=== PATIENT | female | born 1965 | race Caucasian/White ===

== ENCOUNTER 2016-11-28 10:28 | Inpatient (IN) | payer OTHER ==
[~2016-11-28] VITALS: Ht 165.1 cm; Wt 108.0 kg
--- NOTE | 2016-11-28 10:35 | NUR ---
PT TO ED FOR MIGRAINE, REPORTING SHE HAS HAD A MIGRAINE SINCE TUESDAY, WAS SEEN AT [facility] TUESDAY AND TUESDAY NIGHT FOR SAME, STATING "THEY DID A CAT SCAN AND SAID MY BRAIN WAS SWOLLEN". REPORTING WORSENING NAUSEA AND VOMITING SINCE 6 AM THIS MORNING, VOMITING IN TRIAGE. DIFFICULT TO OBTAIN ACCURATE BP DUE TO PT'S WRETCHING AND DIFFICULTY STAYING STILL.
--- NOTE | 2016-11-28 11:04 | ED HEADACHE COMPLAINT ---
History of Present Illness General Chief Complaint: Headache Stated Complaint: MIGRANE Source: patient, family Exam Limitations: no limitations Vital Signs & Intake/Output Vital Signs & Intake/Output Vital Signs Date Time Temp Pulse Resp B/P Pulse O2 O2 Flow FiO2 Ox Delivery Rate 11/29 2159 98.0 89 20 130/90 94 Room Air 11/29 1623 102 162/80 11/29 1536 98.0 60 20 152/80 96 Room Air 11/29 0621 98.4 58 20 152/88 95 ED Intake and Output 11/30 0000 11/29 1200 Intake Total 940 100 Output Total 900 Balance 40 100 Intake, IV 100 100 Intake, Oral 840 Output, Urine 900 Allergies Coded Allergies: No Known Allergies (11/28/16) Reconcile Medications Butalbital/Aspirin/Caffeine (Vhkwwjombe-Rir-Olnorzim Cap) 50 MG-325 MG-40 MG CAPSULE 1-2 CAP PO Q4 HRS NEEDED PRN HEADCHE (Reported) MAX 6 CAPSULES PER DAY Prednisone 20 MG TABLET 3 TAB PO DAILY HEADACHE (Reported) X 3 DAYS Propranolol HCl 20 MG TABLET 1 TAB PO BID UNK (Reported) Terbinafine HCl 250 MG TABLET 1 TAB PO DAILY UNK (Reported) Tramadol HCl 50 MG TABLET 1 TAB PO Q4-6 PRN PRN PAIN (Reported) Triage Note: PT TO ED FOR MIGRAINE, REPORTING SHE HAS HAD A MIGRAINE SINCE TUESDAY, WAS SEEN AT [facility] TUESDAY AND TUESDAY NIGHT FOR SAME, STATING "THEY DID A CAT SCAN AND SAID MY BRAIN WAS SWOLLEN". REPORTING WORSENING NAUSEA AND VOMITING SINCE 6 AM THIS MORNING, VOMITING IN TRIAGE. Triage Nurses Notes Reviewed? yes HPI: 51-year-old female with history of migraines presents with severe headache that started 8 days ago. Sudden onset severe diffuse headache. She states it is worse than her usual migraine headaches and is more diffuse. She denies any visual changes. She is nauseous and vomiting intermittently throughout the week. She was seen at [facility] twice for this, last time on which she had a CT scan of her head and was told that her brain was "swollen" and they put her on prednisone, Fioricet and tramadol which is not relieving her symptoms. Last dose of prednisone was this morning, 20 mg. She denies any fever, she has no neck pain, no weakness or numbness in the extremities. She states that she has severe photophobia. She is not confused. She is not on any blood thinners. She states she has no history of hypertension, she is not on any blood thinners. There was no trauma. (SHANELL HENRY) Past History Travel History Traveled to [place] past 21 day No Medical History Any Pertinent Medical History? see below for history Neurological: migraine EENT: NONE Cardiovascular: NONE Respiratory: NONE Gastrointestinal: NONE Hepatic: NONE Renal: NONE Musculoskeletal: NONE Psychiatric: NONE Endocrine: NONE Blood Disorders: NONE Cancer(s): NONE Surgical History Surgical History: non-contributory Psychosocial History What is your primary language Turkmen Tobacco Use: Refused to answer ETOH Use: occasional use Illicit Drug Use: denies illicit drug use Family History Hx Contributory? No (SHANELL HENRY) Review of Systems Review of Systems Constitutional: Reports: see HPI. Eyes: Reports: no symptoms. Ears, Nose, Throat, Mouth: Reports: no symptoms. Respiratory: Reports: no symptoms. Cardiovascular: Reports: no symptoms. Gastrointestinal/Abdominal: Reports: no symptoms. Genitourinary: Reports: no symptoms. Musculoskeletal: Reports: no symptoms. Skin: Reports: no symptoms. Neurological/Psychological: Reports: see HPI. Hematologic/Endocrine: Reports: no symptoms. Endocrine: Reports: no symptoms. Immunologic/Allergic: Reports: no symptoms. All Other Systems: Reviewed and Negative (SHANELL HENRY) Physical Exam Physical Exam Cranial Nerves: normal hearing, normal speech, PERRL Comments: Well-developed well-nourished person . In moderate discomfort, shielding her eyes from the light, tearful. HEENT: Normal EENT exam, extraocular motion intact, no nystagmus. Pupils equally round and reactive to light. Nose is atraumatic. External auditory canal and Tympanic membranes clear. Pharynx normal. No swelling or edema. Neck: Supple, no lymphadenopathy, normal range of motion without pain or tenderness Back: Nontender, no CVA tenderness. Full range of motion Cardiovascular: Regular rate and rhythms no murmurs, normal JVP Respiratory: Chest nontender. No respiratory distress. Breath sounds clear to auscultation bilaterally Abdomen: Soft, nontender nondistended, no appreciable organomegaly. Normal bowel sounds. No ascites Extremity: No edema, no calf tenderness to palpation, normal and equal pulses. Neuro: Alert oriented x3, motor sensory normal, cranial nerves II through XII grossly intact. Skin: No appreciable rash on exposed skin, skin is warm and dry. Psych: Anxious, tearful, memory and judgment is normal. Core Measures Severe Sepsis Present: No Septic Shock Present: No (MALENA BEARD,SHANELL) Progress Differential Diagnosis: carotid dissection, cav sinus thromb, cluster VIRGEN, encephalitis, IC mass/tumor, intracranial Hem., meningitis, migraine VIRGEN, musculoskeletal pain, sinusitis, SSS thrombosis, subarach. Hem., tension VIRGEN, temporal arteritis, TMJ syndrome, viral cephalgia Plan of Care: Orders Procedure Date/time Status PARTIAL THROMBOPLASTIN TIME 11/30 06 Active PROTHROMBIN TIME 11/30 06 Active CBC WITHOUT DIFFERENTIAL 11/30 06 Active BASIC ELECTROLYTES PLUS BUN&CR 11/30 06 Active CULTURE,URINE 11/29 1040 Active URINE 11/29 0927 Complete URINALYSIS 11/29 09 Complete GLYCOSYLATED HGB 11/29 0640 Complete Lab Add-on Test 11/29 UNK Active MISSING MEDICATION FORM 11/29 UNK Active Current Medications Sig/Mila Start time Last Medication Dose Stop Time Status Admin Prednisone 10 MG DAILY 12/06 1000 AC 12/07 1001 Prednisone 20 MG DAILY 12/04 1000 AC 12/05 1001 Prednisone 30 MG DAILY 12/02 1000 AC 12/03 1001 Prednisone 40 MG DAILY 11/30 1000 AC 12/01 1001 Omeprazole 20 MG DAILY AC 11/30 0700 AC (Prilosec) Prednisone 50 MG DAILY 11/29 1013 CAN Enoxaparin Sodium 40 MG DAILY 11/29 1000 CAN (Lovenox) Laboratory Tests 11/29/16 1040: Urinalysis HEAVY H, Urine Color YEL, Urine Clarity HAZY H, Urine pH 8.0, Ur Specific [place] 1.010, Urine Protein NEG, Urine Ketones NEG, Urine Nitrite NEG, Urine Bilirubin NEG, Urine Urobilinogen 1.0, Ur Leukocyte Esterase NEG, Ur Microscopic SEDIMENT EXAMINED, Urine RBC 1-3, Urine WBC RARE, Ur Epithelial Cells FEW, Urine Bacteria RARE H, Urine Hemoglobin SMALL H, Urine Glucose NEG, Urine Test NEGATIVE 11/29/16 0640: Anion Gap 9, Estimated GFR 52 L, BUN/Creatinine Ratio 12.7, Hemoglobin A1c 5.7, CBC w Diff NO MAN DIFF REQ, RBC 5.14, MCV 84.9, MCH 27.9, RDW 13.9, MPV 8.2, Gran % 71.7, Lymphocytes % 21.2, Monocytes % 6.6, Eosinophils % 0.2, Basophils % 0.3, Absolute Granulocytes 9.1 H, Absolute Lymphocytes 2.7, Absolute Monocytes 0.8 H, Absolute Eosinophils 0, Absolute Basophils 0, PUBS MCHC 32.9 L Microbiology 11/29 1040 URINE ROUT: Urine Culture - RECD Diagnostic Imaging: Viewed by Me: CT Scan. Discussed w/RAD: CT Scan. Radiology Impression: PATIENT: YESENIA DIAZ PRESENT AGE: 51 PATIENT ACCOUNT NO: [id number] : 63 LOCATION: [facility] ORDERING PHYSICIAN: SHANELL BEARD SERVICE DATE: 11/28/16 EXAM TYPE : CAT - CT HEAD WO IV CONTRAST EXAMINATION: CT HEAD WITHOUT CONTRAST CLINICAL INFORMATION: Headache. Hypertension. Concern for subarachnoid hemorrhage. COMPARISON: None TECHNIQUE: Contiguous axial imaging was performed from the skull base to vertex without intravenous administration of contrast. Images are degraded by patient motion requiring some slices to be repeated. DLP: 672 mGy-cm FINDINGS: There is no evidence of acute intracranial hemorrhage or territorial infarction. No abnormal mass effect or midline shift is seen. Shah to white matter differentiation is well preserved. No extra-axial fluid collections are identified. The ventricles are normal in size. There is no abnormal attenuation within the brain parenchyma. The osseous structures and soft tissues are normal. The mastoid air cells and visualized portions of the paranasal sinuses are well aerated. IMPRESSION: No acute intracranial pathology. Specifically I do not appreciate any evidence for intracranial hemorrhage on these images. DICTATED BY : SHANELL BARONE MD DATE/TIME DICTATED:11/28/169 BIAS CUTTER: INDU Initial ED EKG: NSR, rate (50), no ST T wave changes Comments: Patient with severe headaches, sudden onset for 8 days of symptoms, intractable nausea and vomiting third visit to an emergency department. We'll check labs, repeat head CT, consider lumbar puncture. Evaluate for subarachnoid hemorrhage, pseudotumor cerebri as patient is obese and hypertensive Patient treated with IV Dilaudid, IV fluids, IV Phenergan 25 mg. She was reevaluated and still with pain level of 8 out of 10. Still nauseous. She is given Toradol IV and Zofran 4 mg IV. She is also given 10 mg hydralazine IV for persistent hypertension. Patient had lumbar puncture which was mildly traumatic, 3 times required to do excessive body habitus. Pain scale of 4 out of 10 after reevaluation. Discussed with Dr. Pavon, neurologist, recommends Diamox 500 mg daily and following up with neurology clinic at [place] as outpatient if the patient is to be discharged. Patient reevaluated multiple times, still with complaints of moderate headache, persistent nausea, vomited again and mild dyspepsia. She is given another dose of IV Zofran, 1 mg of IV Dilaudid, 40 mg of IV Protonix and Diamox 500 mg IV was ordered. She has intractable nausea vomiting and headache, she required admission to the hospital. (SHANELL HENRY) Departure Departure Disposition: STILL A PATIENT Condition: Stable Clinical Impression Primary Impression: Pseudotumor cerebri Secondary Impressions: Hypertensive urgency Intractable headache Qualifiers: Headache type: unspecified Headache chronicity pattern: acute headache Qualified Code: R51 - Headache Intractable nausea and vomiting Qualifiers: Vomiting type: unspecified Qualified Code: R11.2 - Nausea with vomiting, unspecified Referrals: PATIENT HAS NO PRIMARY CARE DR (PCP/Family) Departure Forms: Customer Survey General Discharge Information Admission Note Spoke With: EFRA ALEXIS MD Documentation of Exam: Documentation of any treatments & extenuating circumstances including Concerns Regarding Discharge (functional status, medication knowledge or non-compliance, living conditions, etc.) that warrant an admission rather than observation: 51-year-old female with new onset, new diagnosis pseudotumor cerebri with intractable headaches nausea vomiting and hypertension, failed treatment here in the ER to improve her symptoms and she will require admission to the hospital for continued IV fluids IV antiemetics and IV pain control and Diamox (SHANELL HENRY) PA/ORTHOPEDIC CAST SPECIALIST Co-Sign Statement Statement: ED Attending supervision documentation- [X] I saw and evaluated the patient. I have also reviewed all the pertinent lab results and diagnostic results. I agree with the findings and the plan of care as documented in the PA's/ORTHOPEDIC CAST SPECIALIST's documentation. [X] I have reviewed the ED Record and agree with the PA's/ORTHOPEDIC CAST SPECIALIST's documentation. [] Additions or exceptions (if any) to the PAs/ORTHOPEDIC CAST SPECIALIST's note and plan are summarized below: [] (ROQUE CASTELLANOS,RANDI Vaughan) Procedures Additional Procedures Additional Procedures: lumbar puncture Progress: After verbal consent wrist and benefits of procedure discussed lumbar puncture was performed by myself with Dr. Serrano. Sterile technique with Betadine, 5 mL of lidocaine was instilled into the L3 L4 . 3 attempts were made as this was a mildly difficult spinal tap due to patient's excessive body habitus. Third attempt was successful, opening pressure measured 36 mmHg, spinal fluid was removed as we suspected pseudotumor cerebri, clear spinal fluid was collected in 4 tubes and sent to the lab 2 mL in each tube, spinal fluid was then rechecked at 19 mmHg. The stylet was then reinserted into the spinal needle and the needle was withdrawn. Patient tolerated the procedure well without, patient's. A Band-Aid was placed. She is to lay flat for the next 1 hour. (SHANELL HENRY) Critical Care Note Critical Care Note Critical Care Time: 30-74 min (SHANELL HENRY)
[2016-11-28 11:23] LABS: ABSOLUTE BASOPHIL COUNT 0 /CUMM (0.0-0.2); ABSOLUTE EOSINOPHIL COUNT 0 /CUMM (0.0-0.7); ABSOLUTE GRANULOCYTE CT 10.5 /CUMM (1.4-6.5); ABSOLUTE LYMPH COUNT 1.6 /CUMM (1.2-3.4); BASOPHIL % 0.1 % (0.0-2.0); EOSINOPHIL % 0.1 % (0-5); GRANULOCYTE % 80.3 % (42.2-75.2); HEMATOCRIT 42.8 % (37-47); MEAN CORPUSCULAR HGB 28.3 PG (27.0-31.0); MEAN CORPUSCULAR HGB CONC 33.3 G/DL (33.0-37.0); MEAN CORPUSCULAR VOLUME 84.9 FL (81.0-99.0); MEAN PLATELET VOLUME 7.6 FL (7.4-10.4); PLATELET COUNT 270 /CUMM (130-400); RBC DISTRIBUTION WIDTH 13.9 % (11.5-14.5); RED BLOOD CELL CT 5.05 /CUMM (4.20-5.40); WHITE BLOOD CELL COUNT 13.1 /CUMM (4.8-10.8)
--- NOTE | 2016-11-28 11:28 | NUR ---
PT IN [facility] RM 8 C/C NOTED IN TRIAGE NOTE EVALUATED BY CHIRAG GUY IV ACCESS ESTABLISHED, #20 LAC LABS DRAWN/SENT (SST, LAVENDAR, BLUE AND SIMONS TOP TUBES) IVF N/S INFUSION INITIATED AND PT MEDICATED WITH DILAUDID, PHENERGAN AND TORADOL PER ORDERS.
--- NOTE | 2016-11-28 11:55 | NUR ---
CHIRAG GUY AT BEDSIDE
--- NOTE | 2016-11-28 12:46 | NUR ---
PT ACTIVELY VOMITING MEDICATED WITH ZOFRAN PER ORDERS
[2016-11-28] MEDS ORDERED: PREDNISONE20 M1 PO (12:55)
[2016-11-28] MEDS ORDERED: TRAMADOL HCL50 M1 PO (12:55)
[2016-11-28] MEDS ORDERED: BUTALBITAL-ASA1 EACH PO (12:56)
[2016-11-28] MEDS ORDERED: PROPRANOLOL HCL20 M1 PO (12:57)
[2016-11-28] MEDS ORDERED: TERBINAFINE HC250 MG PO (12:58)
--- NOTE | 2016-11-28 12:58 | NUR ---
PT TO CT SCAN VIA STRETCHER AT THIS TIME
--- NOTE | 2016-11-28 13:06 | NUR ---
PT RETURNS FROM CT SCAN
--- NOTE | 2016-11-28 13:34 | CT SCAN REPORT ---
EXAMINATION: CT HEAD WITHOUT CONTRAST CLINICAL INFORMATION: Headache. Hypertension. Concern for subarachnoid hemorrhage. COMPARISON: None TECHNIQUE: Contiguous axial imaging was performed from the skull base to vertex without intravenous administration of contrast. Images are degraded by patient motion requiring some slices to be repeated. DLP: 672 mGy-cm FINDINGS: There is no evidence of acute intracranial hemorrhage or territorial infarction. No abnormal mass effect or midline shift is seen. Shah to white matter differentiation is well preserved. No extra-axial fluid collections are identified. The ventricles are normal in size. There is no abnormal attenuation within the brain parenchyma. The osseous structures and soft tissues are normal. The mastoid air cells and visualized portions of the paranasal sinuses are well aerated. IMPRESSION: No acute intracranial pathology. Specifically I do not appreciate any evidence for intracranial hemorrhage on these images.
--- NOTE | 2016-11-28 14:29 | NUR ---
PT. AMBULATORY TO BATHROOM WITH ASSISTANCE
--- NOTE | 2016-11-28 14:39 | NUR ---
PT MEDICATED WITH APRESOLINE PER ORDERS 1% LIDOCAINE AT BEDSIDE PER REQUEST CHIRAG GUY
--- NOTE | 2016-11-28 15:26 | NUR ---
ASSUMING CARE OF PT
--- NOTE | 2016-11-28 16:38 | NUR ---
PT RESTING COMFORTABLY ON STRETCHER. LIGHTS DIMMED FOR COMFORT. AWAITING RESULTS
--- NOTE | 2016-11-28 18:26 | NUR ---
MEDICATED PT WITH ZOFRAN 4MG IV
--- NOTE | 2016-11-28 18:39 | NUR ---
PT MEDICATED WITH DILAUDID 1MG IV AND PROTONIX 40MG IV FOR PAIN AND NAUSEA.
--- NOTE | 2016-11-28 19:12 | NUR ---
PT MEDICATED WITH DIAMOX 500MG IV
--- NOTE | 2016-11-28 20:09 | NUR ---
PT HAS BED #216-2
--- NOTE | 2016-11-28 20:14 | NUR ---
REPORT GIVEN TO RADHA KOENIG
[2016-11-28 21:00] VITALS: BP 160/82
--- NOTE | 2016-11-28 23:07 | History & Physical ---
RITO CASTELLANOS,KARENShiloh 11/28/16 8092: General Information and [facility] MD Statement: I have seen and personally examined YESENIA DIAZ and documented this H&P. The patient is a 51 year old F who presented with a patient stated chief complaint of [HEADACHE]. Source of Information: patient, old records Exam Limitations: no limitations History of Present Illness: This is a 51-year-old female past medical history significant for migraines who comes in with a chief complaint of headache. Patient states that her headaches started about 8 days ago and she describes it as sudden onset, diffusely distributed, associated with photophobia and nausea. She States She Does Have a History of Migraines. Particularly in Her Youth She Suffered from severe headaches once a week that often required in-hospital management. However, with time, her episodes have decreased to 2-3 times a month. She states that current headache is different from her normal migraines. It is worse and unrelenting. At this time she denies any visual changes, weakness, trauma, weakness, fever, nuchal rigidity, rash, myalgia, arthralgia, loss of consciousness, confusion, or dizziness. Of note, patient went to [facility] twice since onset of her headaches. Supposedly, a CT of her head was done and showed "brain swelling." She was started on Fioricet, prednisone, and tramadol. However, medication regimen did not improve symptoms so she came to [facility] for further evaluation. She denies any history of OCP use, smoking, and endorses a weight gain of 65 pounds in the past year. She does endorse significant history of marijuana, which greatly decreased incidence and severity of her headache. She has not smoked THC in the past 2 years. Denies history of IV drug abuse. Med list significant for propanolol for migranie ppx and terbinafine for onychomycoses. Patient has 2 cats at home that are largely indoors and have been with her for the past 12 yrs. Allergies/Medications Allergies: Coded Allergies: No Known Allergies (11/28/16) Home Med list Butalbital/Aspirin/Caffeine (Mlxpgkpuvf-Bww-Ghwyeoxu Cap) 50 MG-325 MG-40 MG CAPSULE 1-2 CAP PO Q4 HRS NEEDED PRN HEADCHE (Reported) MAX 6 CAPSULES PER DAY Prednisone 20 MG TABLET 3 TAB PO DAILY HEADACHE (Reported) X 3 DAYS Propranolol HCl 20 MG TABLET 1 TAB PO BID UNK (Reported) Terbinafine HCl 250 MG TABLET 1 TAB PO DAILY UNK (Reported) Tramadol HCl 50 MG TABLET 1 TAB PO Q4-6 PRN PRN PAIN (Reported) Compliance With Home Meds: UNKNOWN Past History Travel History Traveled to [place] past 21 day No Medical History Blood Transfusion Hx: No Neurological: migraine EENT: NONE Cardiovascular: NONE Respiratory: NONE Gastrointestinal: GERD Hepatic: NONE Renal: NONE Musculoskeletal: NONE Psychiatric: NONE Endocrine: NONE Blood Disorders: NONE Cancer(s): NONE GREY WASHER/Reproductive: NONE Isolation History: Standard Surgical History Surgical History: non-contributory, cholecystectomy Past Family/Social History Psychosocial History Where do you live? Home Services at Home: None Smoking Status: Unknown If Ever Smoked ETOH Use: occasional use Illicit Drug Use: denies illicit drug use Functional Ability ADLs Independent: dressing, eating, toileting, bathing. Ambulation: independent IADLs Independent: shopping, housework, finances, food prep, telephone, transportation , medication admin. Review of Systems Review of Systems Constitutional: Reports: malaise, weakness. Denies: chills, fever, unexplained weight loss. EENTM: Reports: blurred vision, eye tearing. Denies: double vision. Cardiovascular: Denies: chest pain, palpitations. Respiratory: Reports: no symptoms. GI: Reports: nausea, vomiting. Denies: abdominal pain, bloating, constipation, diarrhea, bowel incontinence. Genitourinary: Reports: no symptoms. Musculoskeletal: Reports: no symptoms. Skin: Reports: no symptoms. Neurological/Psychological: Reports: headache. Denies: confusion, numbness, paresthesia, pre-existing deficit, petit mal seizures, tingling, tremors, tonic-clonic seizures, unable to move lower ext, unable to move upper ext, weakness. Exam & Diagnostic Data Last 24 Hrs of Vital Signs/I&O Vital Signs Date Time Temp Pulse Resp B/P Pulse O2 O2 Flow FiO2 Ox Delivery Rate 11/28 2099 98.6 80 20 160/82 93 Room Air 11/29 2015 97.9 53 22 162/80 94 Room Air 11/28 1558 55 20 164/82 97 Room Air 11/28 1440 50 186/102 11/28 1423 97.1 50 18 186/102 98 Room Air 11/28 1246 97.0 52 20 188/90 94 Room Air 11/28 1131 Room Air Room Air 11/28 1033 96.9 98 18 194/99 99 Room Air Intake & Output 11/29 0800 11/29 0000 11/28 1600 Intake Total 100 1000 Output Total 350 Balance -250 1000 Intake, IV 1000 Intake, Oral 100 Output, Urine 350 Patient 99.79 kg 99.79 kg Weight Physical Exam General Appearance Alert, Oriented X3, Cooperative, Mild Distress Skin No Significant Lesion HEENT Atraumatic, PERRLA, patient had photophobia, however pupils equal and reactive to light. She had some dizziness associated with oculomotor tracking. However she is physically able to move her eyes without pain Neck Supple Cardiovascular Regular Rate, Normal S1, Normal S2, No Murmurs Lungs Normal Air Movement Abdomen Soft, No Tenderness Neurological Normal Speech, Strength at 5/5 X4 Ext, Normal Tone, Sensation Intact, Cranial Nerves 3-12 NL Last 24 Hrs of Labs/[place]: Laboratory Tests 11/28/16 1540: CSF Glucose 66, CSF LDH 332, CSF Total Protein 53 11/28/16 1540: CSF WBC 0, CSF RBC 178 H, CSF Comment 11/28/16 1110: Anion Gap 10, Estimated GFR > 60, BUN/Creatinine Ratio 23.3, Glucose 122 H, Calcium 9.4, Total Bilirubin 0.6, AST 39 H, ALT 56 H, Alkaline Phosphatase 91, Total Protein 7.1, Albumin 4.1, Globulin 3.0, Albumin/Globulin Ratio 1.4, CBC w Diff NO MAN DIFF REQ, RBC 5.05, MCV 84.9, MCH 28.3, RDW 13.9, MPV 7.6, Gran % 80.3 H, Lymphocytes % 12.1 L, Monocytes % 7.4, Eosinophils % 0.1, Basophils % 0.1, Absolute Granulocytes 10.5 H, Absolute Lymphocytes 1.6, Absolute Monocytes 1.0 H, Absolute Eosinophils 0, Absolute Basophils 0, PUBS MCHC 33.3, ESR Westergren 1 Microbiology 11/28 1540 CENT N S: CSF Culture - RES 11/28 1540 CENT N S: Gram Stain - RES Assessment/Plan Assessment: This is a 51-year-old female past medical history significant migraine headaches is into the chief complaint of headache that is different from her usual. Episodes last for past 8 days, and has not remitted with prednisone, furosemide tramadol. Patient endorses nausea, vomiting, photophobia, and some blurring of vision. ED workup shows: Vitals: 97.1, 50, 18, 194/99, 99 CSF: White blood cells 0, RBC 178, glucose 23. Opening pressure 360 CBC shows white count 13.1, hemoglobin 14.3, hematocrit 42.8. BP: BUN 21, creatinine 0.9, AST 39, ALT 56. CT of the head: No evidence of any acute intracranial pathology. Plan: Headache: Differential includes- Increased intracranial hypertension secondary to mass effect, pseudotumor cerebri. Intracranial hemorrhage. Additionally, concern for infectious causes such as meningitis/encephalitis, toxo. Given her labs that show no white count, she has no focal neurologic deficit,has a negative head CT, and an elevated opening pressure on lumbar puncture, most likely etiology of her headache idiopathic intracranial hypertension/pseudotumor cerebri. Neuro was consulted and patient was started on Diamox. She does not smoke, drinks socially, denies any current drug abuse. * Acetazolamide with 500 by mouth twice a day * Patient does not improve or worsens with focal neurologic deficits, obtain MRI /MRV in a.m. * Neurochecks every shift * Pain management-dilaudid, * Follow-up ESR * Thank you neurology consult * When necessary Zofran for nausea * Discontinue Fioricet, prednisone * Continue propanolol for migraine prophylaxis * lb loss encouraged Hypertensive urgency: Patient has blood pressure 196/99. She denies any history of hypertension and is not on any medications other than 10 mg of propanolol for migraine prophylaxis. She got 1 dose of hydralazine in ED. At this time it is not possible to entirely rule out hypertensive urgeny as possible etiology for her headache. * Aggressive pain management * Consider starting a blood pressure regimen if she continues to be elevated in a.m. * con't monitor symptoms and BP Full code Regular diet Chemical DVT prophylaxis As Ranked By This Provider Problem List: 1. Pseudotumor cerebri 2. Intractable nausea and vomiting Qualifiers Vomiting type: unspecified Qualified Code: R11.2 - Nausea with vomiting, unspecified Core Measures/Miscellaneous Acute Coronary Syndrome ACS Diagnosis: No Cerebrovascular Accident CVA/TIA Diagnosis: No Congestive Heart Failure CHF Diagnosis: No Venous Thromboembolism VTE Risk Factors: Acute medical illness, Age > 40 [facility] prophylaxis d/t: No contraindications No VTE Pharm Prophylaxis d/t: VTE low risk, No contraindications VTE Diagnosis: No VTE Type: NONE VTE Confirmed by (Test): NONE Severe Sepsis Severe Sepsis Present: No Septic Shock Septic Shock Present: No Miscellaneous Documentation Attending Case Discussed With: EFRA ALEXIS MD Primary Care Physician: PATIENT HAS NO PRIMARY CARE DR Patient sees these Specialists unknown Level of Patient Care: General Medicine ALFIE CASTELLANOS,[facility] 11/28/16 2324: Resident Review Statement Resident Statement: examined this patient, discussed with architect internship, agreed with architect internship, discussed with family, reviewed EMR data (avail), discussed with nursing , discussed with case mgmt, reviewed images, amended to note Other Findings: This is a 51-year-old woman with a medical history of obesity, history of migraine headaches who presents with headache history of 8 days. This episode is cyanosis feared 2 views headache. She is previously been seen at [facility] twice, last evaluation was 4 days ago. She is treated with prednisone. A CAT scan was done of the head at that time which showed per the patient: "Brain swelling". She is also discharged with Fioricet and tramadol. She endorses photophobia. She appears to be in acute and severe pain, but is awake alert oriented 3. Denies any history of hypertension the past. But she does note that she has gained over 65 pounds over the past year, and has discussed this with her primary care physician who attributes this to her diet. In the emergency department she received Toradol, hydromorphone, Phenergan, normal saline bolus 1 L, Zofran, hydralazine 10 mg 1, Protonix 40 mg IV 1, Acetazolamide. She rec'd a LP with high pressure outflow. She is afebrile, blood pressure is elevated at 160/82. Oxygen saturation 93% on room air. On examination, the patient is obese, normocephalic atraumatic. Pupils are equally round and reactive, but the patient does experience pain after shutting light into the eyes. Motor and sensory examinations are normal. Cranial nerves II through XII are grossly intact. Good strength 5 out of 5 in all 4 extremities. Remainder examination is unremarkable. Labs are notable for leukocytosis of 13, 000, nonspecific transaminitis with ALT greater than AST. CAT scan and does not demonstrate any acute intracranial pathology or hemorrhage. We suspect idiopathic intracranial hypertension, acute migraine headache, however Cerebral venous sinus and Cavernous sinus thrombosis should be ruled out. She is neurologically intact, and doesn't apepar to have symptoms, signs or source of infection making cavernous sinus thrombosis less likely. She will need expert evaluation by neurology. - Problems - Severe Intractable headache (IIH, Acute Migraine, Cerebral venous sinus and Cavernous sinus thrombosis) Hypertensive urgency Obesity - Plan - Neurochecks qshift Serial LPs as req'd Cont Acetazolamide Consider loop diuretics if above is not helping Dilaudid for pain control Supportive tx: 1/2 NS for volume loss, Zofran for nausea MRI venography, MRA Brain Maintain adequate BP control Defer anticoagulation until thrombosis is confirmed. Neurology consultation DVT EFRA Dhaliwal 11/29/16 0226: Attending MD Review Statement Attending Statement Attending MD Statement: examined this patient, discuss w/resident/PA/MILLER SUPERVISOR, agreed w/resident/PA/MILLER SUPERVISOR, reviewed EMR data (avail), reviewed images, amended to note Attending Assessment/Plan: CC : Severe headache PMH: Migraine, ? Onychomycosis Patient presents with severe headache that started 8 days ago. Sudden onset, severe, diffuse, associated with photophobia. This pain is different from her usual migraine headache, and very severe. She denies any visual changes, diplopia, neurological weakness, tingling numbness, trauma, LOC, fever, runny nose, ear pain, neck pain, rash, joint pains or swelling. She complains of associated nausea and vomiting, occurring intermittently throughout the week. She went to [facility] twice so far for this, last time on which she had a CT scan of her head and was told that her brain was "swollen" and was started on prednisone, Fioricet and tramadol without relief. Headache persisted, so she came to ER again. Denies any history of OCP use, endorses weight gain of 65 pounds in last 1 year, did not smoke cigarette, smoked THC in the past, quit 2 years back. Denies IV drug use. Her migraine episodes are usually 3 times a month, taking propranolol for preventive medication. Was started on terbinafine for ? "Nail thickening". Endorses polyuria since last 3 months. Vitals: Afebrile, pulse 98 at presentation dropped to 50, RR stable, blood pressure maximum 194/99, trended down to 160/82. Saturating well on room air. On examination: a O 3, photophobia, anxious and pain, no acute distress, PERRLA, neck supple, no JVD, no lymphadenopathy, mucosa moist, no focal neurological deficit, CVS: S1-S2, RRR. RS: Clear to auscultate bilaterally. Abdomen: Soft, intake and, indeed, bowel sounds present. No dependent edema, peripheral pulses perfusion normal. Labs: WBC 13.1, with neutrophils 80%, BUN 21, glucose 122, AST 39, ALT 56. CSF WBC 0, RBC 178, glucose 66, LDH 332, total protein 53 CT head: No acute intracranial pathology. A and P #1 headache: Patient has history of migraine, gets at least 3 episodes per month , on preventive medication. But according to her this headache is different from her usual migraine headaches, persistent since last 8 days, went to [facility] ER, was told that there was "swelling" on the brain, started on prednisone, still headache persisted. Patient underwent LP in ER here, her opening pressure was 360 cm of water, repeat pressure measurement after the tap was 190. Most likely idiopathic intracranial hypertension. Admit general medicine floor. Dr. Pavon was called from ER, patient was started on acetazolamide. Continue acetazolamide 500 mg PO twice a day. Obtain MRI of brain in a.m., neurologic consult, neurochecks every shift, pain management, Check ESR, CRP. Consider MRV in a.m., to rule out other causes of secondary intracranial hypertension. When necessary Zofran for nausea vomiting, discontinued terbinafine, discontinue Fioricet, discontinue prednisone, continue propranolol. Advance diet as tolerated. Patient will need complete eye examination, ? Inpatient versus outpatient. Counseled regarding weight loss. Repeat CBCs BMP in a.m. Saline lock IV. #2 hypertension: Patient does not have a history of hypertension, monitor closely as blood pressure was elevated in ER, his blood pressure persistently elevated, start low-dose amlodipine or lisinopril. #3 leukocytosis: Secondary to prednisone. #4 mild transaminitis : Repeat LFT in a.m. #5 patient endorses polyuria, weight gain in last 1 year, currently blood sugar was elevated, check hemoglobin A1c.
--- NOTE | 2016-11-29 00:18 | NUR ---
2054 ALERT AND ORIENTED X 3. DENIES CHEST PAIN. + PULSES. ON ROOM AIR SKIN C/D/I. EMESIS NOTED. CONTINUOUS IMPROVEMENT SPECIALIST AWARE. BED LOW AND LOCKED. CALL LIGHT WITHIN REACH. MEDICATION GIVEN FOR PAIN. WILL CONTINUE TO MONITOR
--- NOTE | 2016-11-29 02:29 | Admission Certification ---
Admission Certification Certification Statement - As attending physician, I certify that at the time of - admission, based on clinical presentation, severity of - symptoms, need for further diagnostic testing and - therapeutic interventions, and risk of adverse outcomes - without in-hospital treatment, in my clinical assessment, - this patient requires an acute hospital stay for a minimum - of two nights or longer. I have also considered psychsocial - factors such as support system, advanced age, financial - issues, cognitive issues, and failed out-patient treatments, - past re-admission history, safety of patient, and lack of - compliance as applicable. Specific rationale supporting this admission is: Idiopathic intracranial hypertension
[2016-11-29 06:21] VITALS: BP 152/88
--- NOTE | 2016-11-29 07:54 | PN- Housestaff ---
CINDY MATHEWS 11/29/16 0754: Subjective Follow-up For: Chronic headaches possibly due to pseudotumor cerebri High blood pressure Elevated liver enzymes Elevated blood sugar Subjective: Patient seen and examined this morning. She was lying in a silent darkroom due to her headache. She reports she continues to have throbbing pressure-like headache 5/10 associated with nausea and vomiting. Patient did not speak much as she was afraid that it will precipitate her headache. Patient also reports that it is difficult for her to focus on an object due to her headache. Review of Systems Constitutional: Reports: see HPI. Objective Last 24 Hrs of Vital Signs/I&O Vital Signs Date Time Temp Pulse Resp B/P Pulse O2 O2 Flow FiO2 Ox Delivery Rate 11/29 0621 98.4 58 20 152/88 95 11/28 2100 98.6 80 20 160/82 93 Room Air 11/28 2016 97.9 53 22 162/80 94 Room Air 11/28 1558 55 20 164/82 97 Room Air 11/28 1440 50 186/102 11/28 1423 97.1 50 18 186/102 98 Room Air 11/28 1246 97.0 52 20 188/90 94 Room Air Intake & Output 11/29 1600 11/29 0800 11/29 0000 Intake Total 100 100 Output Total 350 Balance 100 -250 Intake, IV 100 Intake, Oral 100 Output, Urine 350 Patient 99.79 kg Weight Physical Exam General Appearance: Alert, Oriented X3, Cooperative, Moderate Distress Skin: No Rashes, No Breakdown HEENT: Atraumatic Neck: Supple Cardiovascular: Normal S1, Normal S2 Lungs: Clear to Auscultation, Normal Air Movement Neurological: Normal Speech, Normal Tone Other Physical Findings: Exam was limited to minimal to avoid any precipitant factor to increase the headache. Current Medications: Current Medications Sig/Mila Start time Last Medication Dose Route Stop Time Status Admin Acetaminophen 1,000 MG Q6P PRN 11/28 2129 AC 11/29 IV 0538 Acetazolamide 500 MG BID 11/29 1000 AC PO Acetazolamide 500 MG ONCE ONE 11/28 1830 DC 11/28 Sodium Chloride 50 ML IV 11/28 185 1912 Diphenhydramine HCl 50 MG .STK-MED ONE 11/29 0245 DC IM 11/29 0246 Diphenhydramine HCl 25 MG Q6P PRN 11/28 2129 AC 11/29 IV 1038 Enoxaparin Sodium 40 MG DAILY 11/29 1000 CAN SC Hydralazine HCl 0 .STK-MED ONE 11/28 1436 DC .ROUTE Hydralazine HCl 10 MG ONCE ONE 11/28 1400 DC 11/28 IV 11/28 1401 1440 Hydromorphone HCl 0.4 MG Q4P PRN 11/28 2145 AC 11/29 IV 1039 Hydromorphone HCl 1 MG ONCE ONE 11/28 1830 DC 11/28 IV 11/28 1831 1838 Hydromorphone HCl 0 .STK-MED ONE 11/28 1830 DC .ROUTE Lidocaine 0 .STK-MED ONE 11/28 1437 DC .ROUTE Morphine Sulfate 2 MG Q4P PRN 11/28 213 DC IV Ondansetron HCl 4 MG Q6P PRN 11/28 2130 AC 11/29 IV 0538 Ondansetron HCl 4 MG ONCE ONE 11/28 1830 DC 11/28 IV 11/28 1831 1825 Ondansetron HCl 0 .STK-MED ONE 11/28 1824 DC .ROUTE Ondansetron HCl 4 MG ONCE ONE 11/28 1245 DC 11/28 IV 11/28 1246 1245 Ondansetron HCl 0 .STK-MED ONE 11/28 1245 DC .ROUTE Pantoprazole Sodium 0 .STK-MED ONE 11/28 1831 DC IV Pantoprazole Sodium 40 MG ONCE ONE 11/28 1830 DC 11/28 IV 11/28 1831 1838 Prednisone 10 MG DAILY 12/06 1000 AC PO 12/07 1001 Prednisone 20 MG DAILY 12/04 1000 AC PO 12/05 1001 Prednisone 30 MG DAILY 12/02 1000 AC PO 12/03 1001 Prednisone 40 MG DAILY 11/30 1000 AC PO 12/01 1001 Prednisone 50 MG DAILY 11/29 1025 DC PO 11/29 1026 Prednisone 50 MG DAILY 11/29 1013 CAN PO Sodium Chloride 1,000 ML ONCE ONE 11/285 CAN IV 11/29 0744 Sodium Chloride 1,000 ML BOLUS ONE 11/28 1100 DC 11/28 IV 11/28 1159 1128 Last 24 Hrs of Lab/Louis Results Last 24 Hrs of Labs/Mics: Laboratory Tests 11/29/16 1040: Urine Color Pending, Urine Clarity Pending, Urine pH Pending, Ur Specific Sunbright Pending, Urine Protein Pending, Urine Ketones Pending, Urine Nitrite Pending, Urine Bilirubin Pending, Urine Urobilinogen Pending, Ur Leukocyte Esterase Pending, Ur Microscopic Pending, Urine Hemoglobin Pending, Urine Glucose Pending, Urine Test Pending 11/29/16 0640: Anion Gap 9, Estimated GFR 52 L, BUN/Creatinine Ratio 12.7, Hemoglobin A1c 5.7, CBC w Diff NO MAN DIFF REQ, RBC 5.14, MCV 84.9, MCH 27.9, RDW 13.9, MPV 8.2, Gran % 71.7, Lymphocytes % 21.2, Monocytes % 6.6, Eosinophils % 0.2, Basophils % 0.3, Absolute Granulocytes 9.1 H, Absolute Lymphocytes 2.7, Absolute Monocytes 0.8 H, Absolute Eosinophils 0, Absolute Basophils 0, PUBS MCHC 32.9 L 11/28/16 1540: CSF Glucose 66, CSF LDH 332, CSF Total Protein 53 11/28/16 1540: CSF WBC 0, CSF RBC 178 H, CSF Comment Microbiology 11/29 1040 URINE ROUT: Urine Culture - RECD 11/28 1540 CENT N S: CSF Culture - RES 11/28 1540 CENT N S: Gram Stain - RES Assessment/Plan Assessment: Patient is a 51-year-old female with past medical history significant for migraines and fungal nail infection, she presented with an 8 day history of severe pressure-like headache that was sudden in onset diffusely distributed over her head and associated with photophobia. She denies any visual changes, diplopia, neurological weakness, tingling numbness, trauma, LOC, fever, runny nose, ear pain, neck pain, rash, joint pains or swelling. She complains of associated nausea and vomiting, occurring intermittently throughout the week. She went to [facility] twice so far for this, last time on which she had a CT scan of her head and was told that her brain was "swollen" and was started on prednisone, Fioricet and tramadol without relief. Headache persisted, so she came to ER again. Denies any history of OCP use, endorses weight gain of 65 pounds in last 1 year, did not smoke cigarette, smoked THC in the past, quit 2 years back. Denies IV drug use. Her migraine episodes are usually 3 times a month, taking propranolol for preventive medication. Was started on terbinafine for ? "Nail thickening". Endorses polyuria since last 3 months. Imaging done in the hospital MR BRAIN WITHOUT CONTRAST 11/29/16 MR VENOGRAPHY BRAIN WITHOUT CONTRAST 11/29/16 1. Minimal nonspecific white matter changes. Otherwise normal brain MRI. 2. Normal brain MRV. CT head without IV contrast 11/28/16 No acute intracranial pathology. Specifically I do not appreciate any evidence for intracranial hemorrhage on these images. Problem list Acute on chronic headache possibly pseudotumor cerebri Elevated blood pressure Elevated liver enzymes Elevated blood sugar Assessment and plan Acute on chronic headache, possibly due to Idiopathic Intracranial Hypertension -LP was done in ER and Patient had an opening LP pressure of 360 mmHg, and repeat opening pressure was 190 mmHg. MRI and MRV obtained is negative for any obvious cause or cavernous sinus thrombosis. Patient did say that she had a little improvement in her headache after the lumbar tap. -I spoke with Dr. Pavon, we will continue acetazolamide 500 twice a day by mouth. If patient is unable to tolerate by mouth we'll switch her to IV. -Dr. Acuña did a detailed funduscopic examination of the patient. Her left margin of the left optic disc is clear however the rest of it could not be visualized. A formal consult has been placed with Dr. Alvarado (motor coach operator) who will see the patient. -Patient has a history of migraine she has been taking propranolol for migraine prophylaxis. Will hold it in the hospital. She was recently admitted at [facility] for a similar episode of severe headache. She was discharged on the prednisone and fioricet. We will continue with the taper of prednisone to avoid abrupt discontinuation. We will obtain detailed records from [facility]. We'll continue to monitor her closely Elevated blood pressure Her blood pressure is elevated to 170/90, will consider giving her low-dose amlodipine for better control Elevated blood sugars Per history obtained by the primary staff, patient reports of polyuria We will follow up on her HbA1c and continue to monitor Elevated liver enzymes Repeat LFTs tomorrow and continue to monitor. DVT prophylaxis Alps Patient is full code Problem List: 1. Pseudotumor cerebri 2. Intractable nausea and vomiting Pain Ratin Pain Location: Head Pain Goal: Pain 4 or less Pain Plan: Luis Manuel Berry Tomorrow's Labs & Rationales: cbc bep VEENA CASTELLANOS,LOUISE 11/29/16 1430: Attending MD Review Statement Attending Statement Attending MD Statement: examined this patient, discuss w/resident/PA/TIMBER CRUISER, agreed w/resident/PA/TIMBER CRUISER, reviewed EMR data (avail), discussed with nursing, reviewed images Attending Assessment/Plan: 51-year-old female admitted overnight. She is here with suspected idiopathic intracranial hypertension. She has severe headache, nausea and photophobia. Her LP opening pressure was [address] Her [address] head MRI and MRV have been negative. Our limited fundus exam shows sharp disc margins on one side but we couldn't really visualize the disc margins on the other side. We spoke to neurology is going to come and see her today and we have spoken to ophthalmology who is also going to see her. We have her on Diamox to decrease CSF production and pressure. Will have to change that to IV likely, given her intense nausea and vomiting. Dr. Pavon advises to continue the steroids for the possibility of an atypical migraine and given that we cannot stop it abruptly. We'll also have to ask Dr Pavon about questionable IV Lasix and follow closely.
[2016-11-29 09:07] LABS: ABSOLUTE BASOPHIL COUNT 0 /CUMM (0.0-0.2); ABSOLUTE EOSINOPHIL COUNT 0 /CUMM (0.0-0.7); ABSOLUTE GRANULOCYTE CT 9.1 /CUMM (1.4-6.5); ABSOLUTE LYMPH COUNT 2.7 /CUMM (1.2-3.4); ABSOLUTE MONOCYTE COUNT 0.8 /CUMM (0.10-0.60); BASOPHIL % 0.3 % (0.0-2.0); EOSINOPHIL % 0.2 % (0-5); GRANULOCYTE % 71.7 % (42.2-75.2); HEMATOCRIT 43.6 % (37-47); MEAN CORPUSCULAR HGB 27.9 PG (27.0-31.0); MEAN CORPUSCULAR HGB CONC 32.9 G/DL (33.0-37.0); MEAN CORPUSCULAR VOLUME 84.9 FL (81.0-99.0); MEAN PLATELET VOLUME 8.2 FL (7.4-10.4); PLATELET COUNT 244 /CUMM (130-400); RBC DISTRIBUTION WIDTH 13.9 % (11.5-14.5); RED BLOOD CELL CT 5.14 /CUMM (4.20-5.40); WHITE BLOOD CELL COUNT 12.6 /CUMM (4.8-10.8)
--- NOTE | 2016-11-29 10:14 | Event Note ---
Event Note Event Note: Spoke with Dr. Pavon, will continue acetazolamind 500 Po BID and continue her steriods 50 mg predinsoe with a taper as they should not be stopped abrupty. Patient was discharged on 60 PO prednisone.
--- NOTE | 2016-11-29 11:52 | MRI REPORT ---
EXAMINATION: MR BRAIN WITHOUT CONTRAST MR VENOGRAPHY BRAIN WITHOUT CONTRAST CLINICAL INFORMATION: 51-year-old woman with severe intractable headache. COMPARISON: 11/28/[address] TECHNIQUE: Multiplanar, multisequence MR imaging of the brain was obtained without the use of intravenous gadolinium. In addition, dxnh-[id number]-[id number] MR venography was performed through the brain, and source images were reviewed along with rotating MIPs. FINDINGS: BRAIN MRI: 3 or 4 nonspecific subcentimeter foci of increased T2 signal are seen throughout the supratentorial white matter, perhaps idiopathic or potentially related to sequelae of migraine headaches. No focal reduced diffusion is seen to suggest acute or subacute cerebral ischemia. No intracranial mass, intracranial blood products, ventriculomegaly, midline shift, or extra-axial collection is apparent. Midline structures, the posterior fossa, and the basal cisterns remain normal in appearance. The paranasal sinuses are well aerated. There is patchy opacification of bilateral mastoid tip cells. BRAIN MRV: Expected flow related signal is seen within the major dural venous sinuses. Specifically, the superior sagittal sinus, internal cerebral veins, straight sinus, transverse sinuses, sigmoid sinuses, and proximal IJs are all visualized and presumably patent. IMPRESSION: 1. Minimal nonspecific white matter changes. Otherwise normal brain MRI. 2. Normal brain MRV.
[2016-11-29 15:36] VITALS: BP 152/80
--- NOTE | 2016-11-29 16:36 | Cons- Neurology ---
General Information and HPI Consulting Request Date of Consult: 11/29/16 Requested By: EFRA ALEXIS MD Reason for Consult: Intracranial hypertension Source of Information: patient Exam Limitations: no limitations History of Present Illness: 51/F reports around 10 days progressive headache with about 1 week associated nausea. vision intermittently blurry "hard to focus" but no loss of vision or obscurations. OP in ER 360, and Diamox started. No history of tetracycline use, OCPs, discontinuation of steroids, head trauma. However reports gain of 20 -30 pounds in last month or two. Was started on steroids at a [facility] last week. Allergies/Medications Allergies: Coded Allergies: No Known Allergies (11/28/16) Home Med List: Butalbital/Aspirin/Caffeine (Syqnzsuvcu-Cgf-Ytprjlfm Cap) 50 MG-325 MG-40 MG CAPSULE 1-2 CAP PO Q4 HRS NEEDED PRN HEADCHE (Reported) MAX 6 CAPSULES PER DAY Prednisone 20 MG TABLET 3 TAB PO DAILY HEADACHE (Reported) X 3 DAYS Propranolol HCl 20 MG TABLET 1 TAB PO BID UNK (Reported) Terbinafine HCl 250 MG TABLET 1 TAB PO DAILY UNK (Reported) Tramadol HCl 50 MG TABLET 1 TAB PO Q4-6 PRN PRN PAIN (Reported) Current Medications: Current Medications Sig/Mila Start time Last Medication Dose Route Stop Time Status Admin Acetaminophen 1,000 MG .STK-MED ONE 11/29 0531 DC IV 11/29 0532 Acetaminophen 1,000 MG Q6P PRN 11/28 2130 AC 11/29 IV 0538 Acetazolamide 500 MG BID 11/29 2200 UNVr Sodium Chloride 50 ML IV Acetazolamide 500 MG BID 11/29 1000 DC 11/29 PO 1225 Acetazolamide 500 MG ONCE ONE 11/28 1830 DC 11/28 Sodium Chloride 50 ML IV 11/28 1859 1912 Amlodipine Besylate 5 MG ONCE ONE 11/29 1430 DC 11/29 PO 11/29 1431 1623 Diphenhydramine HCl 50 MG .STK-MED ONE 11/29 0245 DC IM 11/29 0246 Diphenhydramine HCl 25 MG Q6P PRN 11/28 2130 AC 11/29 IV 1038 Enoxaparin Sodium 40 MG DAILY 11/29 1000 CAN SC Hydromorphone HCl 0.4 MG Q4P PRN 11/28 2145 AC 11/29 IV 1619 Hydromorphone HCl 1 MG ONCE ONE 11/28 1830 DC 11/28 IV 11/28 1831 1838 Hydromorphone HCl 0 .STK-MED ONE 11/28 1830 DC .ROUTE Morphine Sulfate 2 MG Q4P PRN 11/28 2130 DC IV Ondansetron HCl 4 MG .STK-MED ONE 11/29 0530 DC IM 11/29 0531 Ondansetron HCl 4 MG Q6P PRN 11/28 2130 AC 11/29 IV 1234 Ondansetron HCl 4 MG ONCE ONE 11/28 1830 DC 11/28 IV 11/28 1831 1825 Ondansetron HCl 0 .STK-MED ONE 11/28 1824 DC .ROUTE Pantoprazole Sodium 0 .STK-MED ONE 11/28 1831 DC IV Pantoprazole Sodium 40 MG ONCE ONE 11/28 1830 DC 11/28 IV 11/28 1831 1838 Patient Medication 1 ED .STK-MED ONE 11/29 1357 DC Teaching ED 11/29 1358 Prednisone 10 MG DAILY 12/06 1000 AC PO 12/07 1001 Prednisone 20 MG DAILY 12/04 1000 AC PO 12/05 1001 Prednisone 30 MG DAILY 12/02 1000 AC PO 12/03 1001 Prednisone 40 MG DAILY 11/30 1000 AC PO 12/01 1001 Prednisone 50 MG DAILY 11/29 1025 DC 11/29 PO 11/29 1026 1225 Prednisone 50 MG DAILY 11/29 1013 CAN PO Sodium Chloride 1,000 ML ONCE ONE 11/285 CAN IV 11/29 0744 Review of Systems Review of Systems: nausea, continued headache, vision currently clear, no diplopia. remaining elements of complete ROS non-contributory Past History Travel History Traveled to [place] past 21 day No Medical History Blood Transfusion Hx: No Neurological: migraine EENT: NONE Cardiovascular: NONE Respiratory: NONE Gastrointestinal: GERD Hepatic: NONE Renal: NONE Musculoskeletal: NONE Psychiatric: NONE Endocrine: NONE Blood Disorders: NONE Cancer(s): NONE PLANT SAFETY LEADER/Reproductive: NONE Surgical History Surgical History: non-contributory, cholecystectomy Psychosocial History Where Do You Live? Home Services at Home: None Smoking Status: Unknown If Ever Smoked ETOH Use: occasional use Illicit Drug Use: denies illicit drug use Functional Ability ADLs Independent: dressing, eating, toileting, bathing. Ambulation: independent IADLs Independent: shopping, housework, finances, food prep, telephone, transportation , medication admin. Employment History Employment: [employer] Exam & Diagnostic Data Vital Signs and I&O Vital Signs Date Time Temp Pulse Resp B/P Pulse O2 O2 Flow FiO2 Ox Delivery Rate 11/29 1623 102 162/80 11/29 1536 98.0 60 20 152/80 96 Room Air 11/29 0621 98.4 58 20 152/88 95 11/28 2100 98.6 80 20 160/82 93 Room Air 11/29 2015 97.9 53 22 162/80 94 Room Air Intake & Output 11/29 1600 11/29 0800 11/29 0000 Intake Total 600 100 100 Output Total 300 350 Balance 300 100 -250 Intake, IV 100 Intake, Oral 600 100 Output, Urine 300 350 Patient 220 lb Weight Physical Exam: looks ill, color OK neck supple, no adenopathy optic disc margins obscured VF grossly intact to finger counting [id number] EOMI VII and XII 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 screens normal gait testing deferred Last 48 Hours of Lab Results: Laboratory Tests 11/29 11/29 1040 0640 Chemistry Sodium (137 - 145 mmol/L) 135 L Potassium (3.5 - 5.1 mmol/L) 3.9 Chloride (98 - 107 mmol/L) 105 Carbon Dioxide (22 - 30 mmol/L) 21 L Anion Gap (5 - 16) 9 BUN (7 - 17 mg/dL) 14 Creatinine (0.5 - 1.0 mg/dL) 1.1 H Estimated GFR (>60 ml/min) 52 L BUN/Creatinine Ratio (7 - 25 %) 12.7 Hemoglobin A1c (4.2 - 5.8 %) 5.7 Hematology CBC w Diff NO MAN DIFF REQ WBC (4.8 - 10.8 /CUMM) 12.6 H RBC (4.20 - 5.40 /CUMM) 5.14 Hgb (12.0 - 16.0 G/DL) 14.4 Hct (37 - 47 %) 43.6 MCV (81.0 - 99.0 FL) 84.9 MCH (27.0 - 31.0 PG) 27.9 RDW (11.5 - 14.5 %) 13.9 Plt Count (130 - 400 /CUMM) 244 MPV (7.4 - 10.4 FL) 8.2 Gran % (42.2 - 75.2 %) 71.7 Lymphocytes % (20.5 - 51.1 %) 21.2 Monocytes % (1.7 - 9.3 %) 6.6 Eosinophils % (0 - 5 %) 0.2 Basophils % (0.0 - 2.0 %) 0.3 Absolute Granulocytes (1.4 - 6.5 /CUMM) 9.1 H Absolute Lymphocytes (1.2 - 3.4 /CUMM) 2.7 Absolute Monocytes (0.10 - 0.60 /CUMM) 0.8 H Absolute Eosinophils (0.0 - 0.7 /CUMM) 0 Absolute Basophils (0.0 - 0.2 /CUMM) 0 PUBS MCHC (33.0 - 37.0 G/DL) 32.9 L Urines Urinalysis HEAVY H Urine Color (YEL,AMB,STR) YEL Urine Clarity (CLEAR) HAZY H Urine pH (5.0 - 8.0) 8.0 Ur Specific [place] (1.001 - 1.035) 1.010 Urine Protein (NEG,<30 MG/DL) NEG Urine Ketones (NEG) NEG Urine Nitrite (NEG) NEG Urine Bilirubin (NEG) NEG Urine Urobilinogen (0.1 - 1.0 EU/dl) 1.0 Ur Leukocyte Esterase (NEG) NEG Ur Microscopic SEDIMENT EXAMINED Urine RBC (0 - 5 /HPF) 1-3 Urine WBC (0 - 2 /HPF) RARE Ur Epithelial Cells (NONE,FEW) FEW Urine Bacteria (NEG/NONE) RARE H Urine Hemoglobin (NEG) SMALL H Urine Glucose (N MG/DL) NEG Urine Test NEGATIVE 11/28 11/28 11/28 1540 1540 1110 Chemistry Sodium (137 - 145 mmol/L) 138 Potassium (3.5 - 5.1 mmol/L) 3.8 Chloride (98 - 107 mmol/L) 103 Carbon Dioxide (22 - 30 mmol/L) 25 Anion Gap (5 - 16) 10 BUN (7 - 17 mg/dL) 21 H Creatinine (0.5 - 1.0 mg/dL) 0.9 Estimated GFR (>60 ml/min) > 60 BUN/Creatinine Ratio (7 - 25 %) 23.3 Glucose (65 - 99 mg/dL) 122 H Calcium (8.4 - 10.2 mg/dL) 9.4 Total Bilirubin (0.2 - 1.3 mg/dL) 0.6 AST (14 - 36 U/L) 39 H ALT (9 - 52 U/L) 56 H Alkaline Phosphatase (<127 U/L) 91 Total Protein (6.3 - 8.2 g/dL) 7.1 Albumin (3.5 - 5.0 g/dL) 4.1 Globulin (1.9 - 4.2 gm/dL) 3.0 Albumin/Globulin Ratio (1.1 - 2.2 %) 1.4 Hematology CBC w Diff NO MAN DIFF REQ WBC (4.8 - 10.8 /CUMM) 13.1 H RBC (4.20 - 5.40 /CUMM) 5.05 Hgb (12.0 - 16.0 G/DL) 14.3 Hct (37 - 47 %) 42.8 MCV (81.0 - 99.0 FL) 84.9 MCH (27.0 - 31.0 PG) 28.3 RDW (11.5 - 14.5 %) 13.9 Plt Count (130 - 400 /CUMM) 270 MPV (7.4 - 10.4 FL) 7.6 Gran % (42.2 - 75.2 %) 80.3 H Lymphocytes % (20.5 - 51.1 %) 12.1 L Monocytes % (1.7 - 9.3 %) 7.4 Eosinophils % (0 - 5 %) 0.1 Basophils % (0.0 - 2.0 %) 0.1 Absolute Granulocytes (1.4 - 6.5 /CUMM) 10.5 H Absolute Lymphocytes (1.2 - 3.4 /CUMM) 1.6 Absolute Monocytes (0.10 - 0.60 /CUMM) 1.0 H Absolute Eosinophils (0.0 - 0.7 /CUMM) 0 Absolute Basophils (0.0 - 0.2 /CUMM) 0 PUBS MCHC (33.0 - 37.0 G/DL) 33.3 ESR Westergren (0 - 20 MM) 1 Other Body Source CSF WBC (0 - 5 /CUMM) 0 CSF RBC (-0 /CUMM) 178 H CSF Comment CSF Glucose (40 - 70 mg/dL) 66 CSF LDH (U/L) 332 CSF Total Protein (12 - 60 mg/dL) 53 Imaging/Other Studies: MRI MRV 1. Minimal nonspecific white matter changes. Otherwise normal brain MRI. 2. Normal brain MRV. Assessment/Plan Assessment: Idiopathic intracranial hypertension. recent significant weight gain. Recommendations: If not improved by AM repeat LP, bring pressure down to normal (= 180-200 mm H2O ) formal opthalmology consult continue Diamox and steroids Consult Acknowledgment - Thank you for your consult request.
[2016-11-29 21:59] VITALS: BP 130/90
[2016-11-30 06:52] VITALS: BP 124/72
--- NOTE | 2016-11-30 07:30 | PN- Housestaff ---
CINDY MATHEWS 11/30/16 0730: Subjective Follow-up For: Idiopathic intracranial hypertension Subjective: Patient seen and examined this morning. She continued to complain of severe headache. She was evaluated by Dr. Alvarado (inclusion intern) she does not have any papilledema. Patient will get a repeat LP today for opening pressure, cell count, Gram stain, total protein, culture and glucose. Review of Systems Constitutional: Reports: see HPI. Objective Last 24 Hrs of Vital Signs/I&O Vital Signs Date Time Temp Pulse Resp B/P Pulse O2 O2 Flow FiO2 Ox Delivery Rate 11/30 0652 98.4 88 22 124/72 96 Nasal 2.0L Cannula 11/29 2159 98.0 89 20 130/90 94 Room Air 11/29 1623 102 162/80 11/29 1536 98.0 60 20 152/80 96 Room Air Intake & Output 11/30 1600 11/30 0800 11/30 0000 Intake Total 480 340 Output Total 500 600 600 Balance -500 -120 -260 Intake, IV 100 Intake, Oral 480 240 Output, Urine 500 600 600 Patient 107.955 kg Weight Physical Exam General Appearance: Alert, Oriented X3, Cooperative, Moderate Distress Skin: No Rashes, No Breakdown HEENT: Atraumatic, no papilledema per physical exam done by Dr. Alvarado Neck: Supple Cardiovascular: Normal S1, Normal S2 Lungs: Clear to Auscultation, Normal Air Movement Abdomen: Normal Bowel Sounds, Soft, No Tenderness, No Hepatospenomegaly Neurological: Normal Speech, extremely sensitive to light Extremities: No Edema Assessment/Plan Assessment: Patient is a 51-year-old female with past medical history significant for migraines and fungal nail infection, she presented with an 8 day history of severe pressure-like headache that was sudden in onset diffusely distributed over her head and associated with photophobia. She denies any visual changes, diplopia, neurological weakness, tingling numbness, trauma, LOC, fever, runny nose, ear pain, neck pain, rash, joint pains or swelling. She complains of associated nausea and vomiting, occurring intermittently throughout the week. She went to [facility] twice so far for this, last time on which she had a CT scan of her head and was told that her brain was "swollen" and was started on prednisone, Fioricet and tramadol without relief. Headache persisted, so she came to ER again. Denies any history of OCP use, endorses weight gain of 65 pounds in last 1 year, did not smoke cigarette, smoked THC in the past, quit 2 years back. Denies IV drug use. Her migraine episodes are usually 3 times a month, taking propranolol for preventive medication. Was started on terbinafine for ? "Nail thickening". Endorses polyuria since last 3 months. Imaging done in the hospital MR BRAIN WITHOUT CONTRAST 11/29/16 MR VENOGRAPHY BRAIN WITHOUT CONTRAST 11/29/16 1. Minimal nonspecific white matter changes. Otherwise normal brain MRI. 2. Normal brain MRV. CT head without IV contrast 11/28/16 No acute intracranial pathology. Specifically I do not appreciate any evidence for intracranial hemorrhage on these images. Problem list Acute on chronic headache possibly pseudotumor cerebri Elevated blood pressure Elevated liver enzymes Elevated blood sugar Assessment and plan Acute on chronic headache, possibly due to Idiopathic Intracranial Hypertension -LP was done in ER and Patient had an opening LP pressure of 360 mmHg, and repeat opening pressure was 190 mmHg on the same day. MRI and MRV obtained is negative for any obvious cause or cavernous sinus thrombosis. Patient did say that she had a little improvement in her headache after the lumbar tap. -I spoke with Dr. Pavon, we will continue acetazolamide 500 twice IV for now as patient has been throwing up. When her nausea improves she can be switched to by mouth acetazolamide. - Dr. Alvarado (inclusion intern) did a funduscopic examination of the patient which is negative for any papilledema. -Plan is for repeat LP today, will notice the opening pressure and send CSF for cell count, Gram stain, culture, total protein, glucose. -Patient has a history of migraine she has been taking propranolol for migraine prophylaxis. Will hold it in the hospital. She was recently admitted at [facility] for a similar episode of severe headache. She was discharged on the prednisone and fioricet with a diagnosis of migraine (records available in file) . We will continue with the taper of prednisone to avoid abrupt discontinuation. We'll continue to monitor her closely Elevated blood pressure Her blood pressure is elevated to 170/90 on 11/29/16 she was given 1 time 5 mg of amlodipine blood pressure better controlled today. Elevated blood sugars Per history obtained by the primary staff, patient reports of polyuria Her HbA1c is 5.7 from 11/29/16. Elevated liver enzymes Repeat LFTs tomorrow and continue to monitor. DVT prophylaxis Alps Patient is full code Problem List: 1. Pseudotumor cerebri Pain Ratin Pain Location: Headache Pain Goal: Pain 4 or less Pain Plan: Dilaudid, Benadryl Tomorrow's Labs & Rationales: CBC/BEP LOUISE CURIEL MD 11/30/16 0939: Attending MD Review Statement Attending Statement Attending MD Statement: examined this patient, discuss w/resident/PA/SPECIAL EFFECTS PERSON, agreed w/resident/PA/SPECIAL EFFECTS PERSON, reviewed EMR data (avail), discussed with nursing, discussed with case mgmt Attending Assessment/Plan: Patient continues to have severe headache, nausea and vomiting. The dilaudid, antiemetics are barely helping. Because of the intense nausea, vomiting and mild FREDA, we are giving her IV Diamox both to decrease intracranial pressure and to prevent production of CSF. We spoke to Dr. Pavon yesterday and he had clearly indicated that if her headache is not relieved at all she'll need a therapeutic LP today. Patient is agreeable and the plan is for therapeutic LP today to decrease opening pressure of CSF.
[2016-11-30 08:07] LABS: ABSOLUTE BASOPHIL COUNT 0 /CUMM (0.0-0.2); ABSOLUTE EOSINOPHIL COUNT 0 /CUMM (0.0-0.7); ABSOLUTE GRANULOCYTE CT 6.9 /CUMM (1.4-6.5); ABSOLUTE LYMPH COUNT 2.2 /CUMM (1.2-3.4); ABSOLUTE MONOCYTE COUNT 0.8 /CUMM (0.10-0.60); BASOPHIL % 0.5 % (0.0-2.0); EOSINOPHIL % 0.2 % (0-5); GRANULOCYTE % 69.8 % (42.2-75.2); HEMATOCRIT 46.8 % (37-47); MEAN CORPUSCULAR HGB 28.5 PG (27.0-31.0); MEAN CORPUSCULAR HGB CONC 33.4 G/DL (33.0-37.0); MEAN CORPUSCULAR VOLUME 85.2 FL (81.0-99.0); MEAN PLATELET VOLUME 7.9 FL (7.4-10.4); PLATELET COUNT 258 /CUMM (130-400); RBC DISTRIBUTION WIDTH 14.3 % (11.5-14.5); WHITE BLOOD CELL COUNT 9.9 /CUMM (4.8-10.8)
[2016-11-30] MEDS ORDERED: LEVOXYL75 MCG PO (08:18)
[2016-11-30] MEDS ORDERED: ATORVASTATIN CA10 M1 PO (08:19)
[2016-11-30 08:21] LABS: PT 11.9 SEC (9.4-12.5); PTT 27 SEC (25-37)
--- NOTE | 2016-11-30 11:41 | Proc Note Internal Medicine ---
Medicine Procedure Procedure Date: 11/30/16 Medical Procedure(s): lumbar puncture Pre-Operative Diagnosis: Idiopathic intracranial hypertension Post-Operative Diagnosis: As above Estimated Blood Loss: none Anesthesia: n/a Procedure Findings: Informed consent was obtained from the patient. The patient was placed in the LEFT lateral decubitus position in a semi- position. The area was cleansed and draped in usual sterile fashion. 1% lidocaine was used anesthetize the surrounding skin area. A 20-gauge 3.5-inch spinal needle was placed in the L4-L5 interspace. Stylet was removed intermittently to check for CSF fluid, however no fluid came out. A repeat attempt was made with the same technique, the needle was allowed to go in L4-L5 space and no fluid was obtained. The procedure was terminated at that point, patient was updated that CSF could not be obtained and the procedure kit was safetly discarded. The attending was present for the entire procedure.
--- NOTE | 2016-11-30 14:25 | Cons- Ophthalmology ---
General Information and HPI Consulting Request Date of Consult: 11/30/16 Requested By: EFRA ALEXIS MD Reason for Consult: Rule out pailledema History of Present Illness: Patient is a 51-year-old female who was admitted to the hospital on 326 with headaches she was found to have elevated opening pressure on lumbar puncture after a CT scan of the head was normal a consult was called for ophthalmology to determine if the patient had optic nerve papilledema. Allergies/Medications Allergies: Coded Allergies: No Known Allergies (11/28/16) Home Med List: Atorvastatin Calcium 10 MG TABLET 1 TAB PO DAILY HYPERLIPIDEMIA (Reported) Butalbital/Aspirin/Caffeine (Affpiwxeps-Gvk-Pfriurzm Cap) 50 MG-325 MG-40 MG CAPSULE 1-2 CAP PO Q4 HRS NEEDED PRN HEADCHE (Reported) MAX 6 CAPSULES PER DAY Levothyroxine Sodium (Levoxyl) 75 MCG TABLET 1 TAB PO DAILY HYPOTHYRODISM ( Reported) Prednisone 20 MG TABLET 3 TAB PO DAILY HEADACHE (Reported) X 3 DAYS Propranolol HCl 20 MG TABLET 1 TAB PO BID UNK (Reported) Terbinafine HCl 250 MG TABLET 1 TAB PO DAILY UNK (Reported) Tramadol HCl 50 MG TABLET 1 TAB PO Q4-6 PRN PRN PAIN (Reported) Current Medications: Current Medications Sig/Mila Start time Last Medication Dose Route Stop Time Status Admin Acetaminophen 1,000 MG Q6P PRN 11/28 2130 AC 11/29 IV 0538 Acetazolamide 500 MG BID 11/29 2200 AC 11/30 Sodium Chloride 50 ML IV 1125 Acetazolamide 500 MG BID 11/29 1000 DC 11/29 PO 1225 Amlodipine Besylate 5 MG ONCE ONE 11/29 1430 DC 11/29 PO 11/29 1431 1623 Bisacodyl 10 MG ONCE PRN 11/30 0830 DC WA 11/30 0831 Calcium Carbonate 500 MG DAILY 11/30 1345 AC 11/30 PO 1350 Diphenhydramine HCl 50 MG .STK-MED ONE 11/29 1624 DC IM 11/29 1625 Diphenhydramine HCl 25 MG Q6P PRN 11/28 2130 AC 11/30 IV 0828 Docusate Sodium 100 MG DAILY NEEDED PRN 11/30 0645 AC PO Hydromorphone HCl 0.4 MG Q4P PRN 11/28 2145 AC 11/30 IV 1351 Levothyroxine Sodium 0.075 MG DAILY 11/30 1000 DC PO Levothyroxine Sodium 0.075 MG 0700 11/30 0830 AC 11/30 PO 1125 Omeprazole 20 MG DAILY AC 11/30 1345 CAN PO Omeprazole 20 MG DAILY AC 11/30 0700 AC 11/30 PO 0552 Ondansetron HCl 4 MG .STK-MED ONE 11/29 1812 DC IM 11/29 1813 Ondansetron HCl 4 MG Q6P PRN 11/28 2130 AC 11/30 IV 1351 Polyethylene Glycol 17 GM DAILY 11/30 1000 AC 11/30 PO 1124 Prednisone 10 MG DAILY 12/06 1000 AC PO 12/07 1001 Prednisone 20 MG DAILY 12/04 1000 AC PO 12/05 1001 Prednisone 30 MG DAILY 12/02 1000 AC PO 12/03 1001 Prednisone 40 MG DAILY 11/30 1000 AC 11/30 PO 12/01 1001 1125 Senna 187 MG AT BEDTIME 11/30 2200 AC PO Senna/Docusate Sodium 2 TAB DAILY 11/30 0830 AC 11/30 PO 1125 Tramadol HCl 50 MG ONCE ONE 11/29 1830 DC 11/29 PO 11/29 1831 1844 Past History Medical History Blood Transfusion Hx: No Neurological: migraine EENT: NONE Cardiovascular: NONE Respiratory: NONE Gastrointestinal: GERD Hepatic: NONE Renal: NONE Musculoskeletal: NONE Psychiatric: NONE Endocrine: NONE Blood Disorders: NONE Cancer(s): NONE CARE ADVOCATE/Reproductive: NONE Surgical History Pertinent Surgical History: non-contributory, cholecystectomy Psychosocial History Where Do You Live? Home Services at Home: None Smoking Status: Unknown If Ever Smoked ETOH Use: occasional use Illicit Drug Use: denies illicit drug use Functional Ability ADLs Independent: dressing, eating, toileting, bathing. Ambulation: independent IADLs Independent: shopping, housework, finances, food prep, telephone, transportation , medication admin. Employment History Employment: [employer] Exam & Diagnostic Data Vital Signs and I&O Vital Signs Date Time Temp Pulse Resp B/P Pulse O2 O2 Flow FiO2 Ox Delivery Rate 11/30 0652 98.4 88 22 124/72 96 Nasal 2.0L Cannula 11/29 2158 98.0 89 20 130/90 94 Room Air 11/29 1623 102 162/80 11/29 1536 98.0 60 20 152/80 96 Room Air Intake & Output 11/30 1600 11/30 0800 11/30 0000 11/29 1600 11/29 0800 11/29 0000 Intake Total 480 340 600 100 100 Output Total 500 600 600 300 350 Balance -500 -120 -260 300 100 -250 Intake, IV 100 100 Intake, Oral 480 240 600 100 Output, Urine 500 600 600 300 350 Patient 238 lb 220 lb Weight Physical Exam: Vision with near card with our reading glasses was 20/80 in each eye individually. There were no visual field defects on confrontation testing. There were no pupillary abnormalities. The patient had full motility. External examination was unremarkable with a glucose being white and quiet. On dilated fundus exam there was no swelling of either optic nerve. Specifically the optic nerve borders are sharp and distinct each eye and the vasculature emanating from each optic nerve was within normal limits. Assessment/Plan Assessment/Plan Impression is patient with headaches but no papilledema. House staff was alerted to this artifact. I do not have any ophthalmic recommendations in this case. Consult Acknowledgment - Thank you for your consult request. Attending MD Review Statement Attending Statement Attending MD Statement: examined this patient
--- NOTE | 2016-11-30 16:05 | NUR ---
PT RETURNED TO FLOOR FROM XRAY. WILL CONTINUE TO MONITOR
--- NOTE | 2016-11-30 16:12 | INTERVENTIONAL RADIOLOGY RPT ---
EXAMINATION: LUMBAR PUNCTURE CLINICAL HISTORY: The patient is a 51 years old Female with idiopathic intracranial hypertension, who presents to interventional radiology for fluoroscopically-guided lumbar puncture to reduce her pressure. PROCEDURES: Fluoroscopically-guided lumbar puncture. PHYSICIANS: Dr. Ronit Ny (attending). MEDICATIONS: 10 mL 1% lidocaine SQ. COMPLICATIONS: None. ESTIMATED BLOOD LOSS: <5 mL. SPECIMENS: 0 mL CSF. Specimens were appropriately labeled and sent to the laboratory for evaluation with request to inform the referring physician of results. FLUOROSCOPY TIME: 1.1 minutes. PROCEDURE NOTE: Informed consent was obtained from the patient prior to the procedure. During this process, the procedure and potential alternatives were explained along with the intended outcome and benefits. The risks of the procedure, including the possibility of an unsuccessful procedure, as well as the risk of not doing the procedure, were discussed. The patient was given the opportunity to ask questions regarding the procedure and appeared competent to make decisions. A signed consent form documenting this discussion was placed in the medical record. SITE MARKING: As part of the preprocedure verification policy, a site marking procedure was initiated. Due to the nature the procedure, the insertion site could not be predetermined thus invoking the policy of exemption to site laterality and marking. Insertion site marking was performed in the procedure room in conjunction with imaging confirmation. Appropriate pre-procedure medical history and imaging studies were reviewed. A time-out procedure was performed. The patient was placed prone on the fluoroscopy table. Fluoroscopic images of the lumbar spine were obtained to localize the L4-L5 level. The patient's back was prepped and draped in the standard sterile fashion. 1% lidocaine was used to obtain local anesthesia the skin and deeper tissues. A 22-gauge spinal needle was then passed through the introducer needle into the spinal canal, no CSF flowed. 1 mL of Omnipaque 300 contrast was administered through the needle confirming needle tip location within the spinal canal. An opening pressure was unable to be obtained. The spinal needle was removed and a sterile dressing applied. FINDINGS: Dry tap. The needle position was confirmed to be within the spinal canal by contrast injection. IMPRESSION: Fluoroscopic-guided lumbar puncture as described. Dry tap, no opening pressure able to be measured. Upon interview, the patient reports her headaches to be better when she is lying flat. She appears dehydrated and I suspect a CSF leak to be responsible for her current headaches which she reports are different than the headaches associated with intracranial hypertension. PLAN: The patient was stable after the procedure and was transferred to the interventional recovery area. The patient will be transferred to the floor. Recommend hydrating the patient in keeping her flat. If her headache do not improve within 24 to 48 hours, a blood patch is recommended.
--- NOTE | 2016-11-30 16:13 | Event Note ---
Event Note Event Note: I spoke to Dr. Ny from radiology. After we attempted and couldn't get the lumbar puncture here at the bedside we sent her down for IR guideed LP. Dr. Ny confirmed that she was in the right place fluoroscopically but it was a dry tap. Dr. Ny spoke to the patient for a while and she feels that patient has a CSF leak. She feels the patient's intense headache and relief on lying flat with the photophobia and the dry tap, Confirm the CSF leak. For now we are going to stop the IV Diamox, hydrate her, keep her completely flat and watch her for the next 24 hours and if she doesn't get better Dr. Ny will do a blood patch for intense headache with nausea and vomiting.
[2016-11-30 16:28] VITALS: BP 150/76
--- NOTE | 2016-11-30 17:00 | PN- Neurology ---
Subjective Subjective: Continues to have a severe pounding and throbbing headache around the eyes despite the taps. She notes that the headache started about 10 days ago abruptly and suddenly out of nowhere. Also notes that she has been admitted multiple times in the past for migraine and has headaches almost every day. Her current headache is described as frontal throbbing, with severe photo and phonophobia, blurry vision, nausea and vomiting. Denies any other focal symptoms or fever. Has been given Benadryl, Toradol and Reglan at [facility] but continued to have a pounding headache. CSF reveals zero white cells and overall a normal profile. MRI and MRV are normal. Notes that ophto exam today revealed no papilledema. Review of Systems: same. Objective Vital Signs and I&Os Vital Signs Date Time Temp Pulse Resp B/P Pulse O2 O2 Flow FiO2 Ox Delivery Rate 11/30 1628 98.6 79 20 150/76 96 11/30 0652 98.4 88 22 124/72 96 Nasal 2.0L Cannula 11/29 2158 98.0 89 20 130/90 94 Room Air Intake & Output 11/30 1600 11/30 0800 11/30 0000 11/29 1600 11/29 0800 11/29 0000 Intake Total 500 480 340 600 100 100 Output Total 500 600 600 300 350 Balance 0 -120 -260 300 100 -250 Intake, IV 100 100 Intake, Oral 500 480 240 600 100 Output, Urine 500 600 600 300 350 Patient 238 lb 220 lb Weight Physical Exam: Alert and orientedx3. Photophobic. EOMI, AGUILAR. Face symmetric. Strength 5/5. Negative kernig sign. Mildly positive Brudzinski's. Current Medications: Current Medications Sig/Mila Start time Last Medication Dose Route Stop Time Status Admin Acetaminophen 1,000 MG Q6P PRN 11/28 2130 AC 11/29 IV 0538 Acetazolamide 500 MG BID 11/29 2200 DC 11/30 Sodium Chloride 50 ML IV 1125 Bisacodyl 10 MG ONCE PRN 11/30 0830 DC DC 11/30 0831 Calcium Carbonate 500 MG DAILY 11/30 1345 AC 11/30 PO 1350 Diphenhydramine HCl 50 MG .STK-MED ONE 11/30 0822 DC IM 11/30 0823 Diphenhydramine HCl 25 MG Q6P PRN 11/28 2130 AC 11/30 IV 0828 Docusate Sodium 100 MG DAILY NEEDED PRN 11/30 0645 AC PO Hydromorphone HCl 0.4 MG Q4P PRN 11/28 2145 AC 11/30 IV 1351 Levothyroxine Sodium 0.075 MG DAILY 11/30 1000 DC PO Levothyroxine Sodium 0.075 MG 0700 11/30 0830 AC 11/30 PO 1125 Lidocaine 0 .STK-MED ONE 11/30 1457 DC .ROUTE Omeprazole 20 MG DAILY AC 11/30 1345 CAN PO Omeprazole 20 MG DAILY AC 11/30 0700 AC 11/30 PO 0552 Ondansetron HCl 4 MG .STK-MED ONE 11/30 0819 DC IM 11/30 0820 Ondansetron HCl 4 MG .STK-MED ONE 11/29 1812 DC IM 11/29 1813 Ondansetron HCl 4 MG Q6P PRN 11/28 2130 AC 11/30 IV 1351 Polyethylene Glycol 17 GM DAILY 11/30 1000 AC 11/30 PO 1124 Prednisone 10 MG DAILY 12/06 1000 AC PO 12/07 1001 Prednisone 20 MG DAILY 12/04 1000 AC PO 12/05 1001 Prednisone 30 MG DAILY 12/02 1000 AC PO 12/03 1001 Prednisone 40 MG DAILY 11/30 1000 AC 11/30 PO 12/01 1001 1125 Senna 187 MG AT BEDTIME 11/30 2200 AC PO Senna/Docusate Sodium 2 TAB DAILY 11/30 0830 AC 11/30 PO 1125 Sodium Chloride 1,000 ML Q10H 11/30 1615 AC IV Tramadol HCl 50 MG ONCE ONE 11/29 1830 DC 11/29 PO 11/29 1831 1844 Results Last 24 Hours of Lab Results: Laboratory Tests 11/30 0639 Chemistry Sodium (137 - 145 mmol/L) 137 Potassium (3.5 - 5.1 mmol/L) 3.9 Chloride (98 - 107 mmol/L) 106 Carbon Dioxide (22 - 30 mmol/L) 17 L Anion Gap (5 - 16) 13 BUN (7 - 17 mg/dL) 18 H Creatinine (0.5 - 1.0 mg/dL) 1.1 H Estimated GFR (>60 ml/min) 52 L BUN/Creatinine Ratio (7 - 25 %) 16.4 Triglycerides (<150 mg/dL) 181 H Cholesterol (<200 MG/DL) 217 H LDL Cholesterol, Calc (65 - 129 mg/dL) 124 HDL Cholesterol (40 - 60 mg/dL) 57 Cholesterol/HDL Ratio (0.00 - 4.23 %) 3.8 TSH (0.270 - 4.200 uIU/mL) 2.110 Free T4 (0.64 - 1.79 ng/dL) 1.01 Free T3 (2.71 - 6.16 pg/mL) 2.1 L Coagulation PT (9.4 - 12.5 SEC) 11.9 INR (0.90 - 1.19) 1.13 APTT (25 - 37 SEC) 27 Hematology CBC w Diff NO MAN DIFF REQ WBC (4.8 - 10.8 /CUMM) 9.9 RBC (4.20 - 5.40 /CUMM) 5.50 H Hgb (12.0 - 16.0 G/DL) 15.6 Hct (37 - 47 %) 46.8 MCV (81.0 - 99.0 FL) 85.2 MCH (27.0 - 31.0 PG) 28.5 RDW (11.5 - 14.5 %) 14.3 Plt Count (130 - 400 /CUMM) 258 MPV (7.4 - 10.4 FL) 7.9 Gran % (42.2 - 75.2 %) 69.8 Lymphocytes % (20.5 - 51.1 %) 21.9 Monocytes % (1.7 - 9.3 %) 7.6 Eosinophils % (0 - 5 %) 0.2 Basophils % (0.0 - 2.0 %) 0.5 Absolute Granulocytes (1.4 - 6.5 /CUMM) 6.9 H Absolute Lymphocytes (1.2 - 3.4 /CUMM) 2.2 Absolute Monocytes (0.10 - 0.60 /CUMM) 0.8 H Absolute Eosinophils (0.0 - 0.7 /CUMM) 0 Absolute Basophils (0.0 - 0.2 /CUMM) 0 PUBS MCHC (33.0 - 37.0 G/DL) 33.4 Recent Imaging Studies: MRV and MRI are normal. Specifically there are no slit ventricles or empty sella. Assessment/Plan Assessment: 51 year old woman presenting with was is much more consistent with status migrainosus than pseudotumor cerebri. She does not have papilledema, no slit ventricle, no empty sella, no CSF suggestive of meningitis or SAH. Her MRV is normal. Her clinical presentation is classical for migraine and the headache started abruptly. Plan: 1. Stop steroids. 2. Give Depacon 1000mg IVBP over an hour. Can repeat every 8 hours if needed. 3. Give Solumedrol 250mg IVPB after the Depacon. 4. Tonight give Benadryl 50mg IV before sleep. 5. If cannot fall asleep give Restoril 15mg. 6. Reasses pain scales. Will reassess tomorrow.
[2016-11-30 20:49] VITALS: BP 128/74
[2016-12-01 07:34] VITALS: BP 132/70
--- NOTE | 2016-12-01 09:03 | PN- Housestaff ---
JOANN CASTELLANOS,MERYL 12/01/16 0903: Subjective Follow-up For: Headache Subjective: Patient still c/o headache more on the temporal and frontal 10/10 with relief on IV dilaudid with pain relieved to 6/10 in intensity. She was started on depakote yesterday for status migrainosus with no relief. She is still requiring Dilaudid as per when necessary ordered. No overnight events noted Review of Systems Constitutional: Reports: see HPI. Objective Last 24 Hrs of Vital Signs/I&O Vital Signs Date Time Temp Pulse Resp B/P Pulse O2 O2 Flow FiO2 Ox Delivery Rate 12/01 1413 98.2 83 20 134/74 95 Room Air 12/01 0734 97.6 78 18 132/70 97 Room Air 11/30 2049 98.3 84 18 128/74 96 Room Air 11/30 1628 98.6 79 20 150/76 96 Intake & Output 12/01 1600 12/01 0800 12/01 0000 Intake Total 800 400 Output Total 250 350 Balance -250 800 50 Intake, IV 800 400 Output, Urine 250 350 Physical Exam General Appearance: Alert, Oriented X3, Cooperative, Moderate Distress Skin: No Rashes HEENT: Atraumatic, PERRLA, EOMI Cardiovascular: Regular Rate, Normal S1, Normal S2 Lungs: Clear to Auscultation Abdomen: Normal Bowel Sounds, Soft, No Tenderness Neurological: Normal Speech, Normal Tone Extremities: No Clubbing, No Cyanosis, No Edema Current Medications: Current Medications Sig/Mila Start time Last Medication Dose Route Stop Time Status Admin Acetaminophen 1,000 MG Q6P PRN 11/280 AC 12/01 IV 1211 Acetazolamide 500 MG BID 11/29 2200 DC 11/30 Sodium Chloride 50 ML IV 1125 Calcium Carbonate 500 MG DAILY 11/30 1345 AC 12/01 PO 1003 Diphenhydramine HCl 50 MG ONCE ONE 11/30 2100 DC 11/30 IV PUSH 11/30 210 2217 Diphenhydramine HCl 25 MG Q6P PRN 11/280 AC 11/30 IV 0828 Docusate Sodium 100 MG DAILY NEEDED PRN 11/30 0645 AC PO Hydromorphone HCl 0.4 MG Q4P PRN 11/28 2145 AC 12/01 IV 1355 Levothyroxine Sodium 0.075 MG 0700 11/30 0830 AC 12/01 PO 0554 Lidocaine 0 .STK-MED ONE 11/30 1457 DC .ROUTE Methylprednisolone 250 MG ONCE ONE 11/30 1715 DC 11/30 IV 11/30 1716 1902 Omeprazole 20 MG DAILY AC 11/30 0700 AC 12/01 PO 0554 Ondansetron HCl 4 MG .STK-MED ONE 11/30 1953 DC IM 11/30 195 Ondansetron HCl 4 MG Q6P PRN 11/28 2130 AC 12/01 IV 0902 Patient Medication 1 ED .STK-MED ONE 12/01 1356 DC Teaching ED 12/01 1357 Polyethylene Glycol 17 GM DAILY 11/30 1000 AC 12/01 PO 1002 Prednisone 10 MG DAILY 12/06 1000 CAN PO 12/07 1001 Prednisone 20 MG DAILY 12/04 1000 CAN PO 12/05 1001 Prednisone 30 MG DAILY 12/02 1000 CAN PO 12/03 1001 Prednisone 40 MG DAILY 11/30 1000 DC 11/30 PO 12/01 1001 1125 Senna 187 MG AT BEDTIME 11/30 2200 AC 11/30 PO 2218 Senna/Docusate Sodium 2 TAB DAILY 11/30 0830 AC 12/01 PO 1002 Sodium Chloride 1,000 ML Q10H 11/30 1615 AC 12/01 IV 1205 Temazepam 15 MG AT BEDTIME NEED.. 11/30 171 AC PO Valproate Sodium 1,000 MG ONCE ONE 11/30 1715 DC 11/30 Dextrose/Water 100 ML IV 11/30 1814 1903 Assessment/Plan Assessment: Patient is a 51-year-old female with past medical history significant for migraines and fungal nail infection, she presented with an 8 day history of severe pressure-like headache that was sudden in onset diffusely distributed over her head and associated with photophobia. She denies any visual changes, diplopia, neurological weakness, tingling numbness, trauma, LOC, fever, runny nose, ear pain, neck pain, rash, joint pains or swelling. She complains of associated nausea and vomiting, occurring intermittently throughout the week. She went to [facility] twice so far for this, last time on which she had a CT scan of her head and was told that her brain was "swollen" and was started on prednisone, Fioricet and tramadol without relief. Headache persisted, so she came to ER again. Denies any history of OCP use, endorses weight gain of 65 pounds in last 1 year, did not smoke cigarette, smoked THC in the past, quit 2 years back. Denies IV drug use. Her migraine episodes are usually 3 times a month, taking propranolol for preventive medication. Was started on terbinafine for ? "Nail thickening". Endorses polyuria since last 3 months. Imaging done in the hospital MR BRAIN WITHOUT CONTRAST 11/29/16 MR VENOGRAPHY BRAIN WITHOUT CONTRAST 11/29/16 1. Minimal nonspecific white matter changes. Otherwise normal brain MRI. 2. Normal brain MRV. CT head without IV contrast 11/28/16 No acute intracranial pathology. Specifically I do not appreciate any evidence for intracranial hemorrhage on these images. Problem list Acute on chronic headache possibly pseudotumor cerebri Elevated blood pressure Elevated liver enzymes Elevated blood sugar Assessment and plan Acute on chronic headache, possibly status migrainosus versus CSF leak -LP was done in ER and Patient had an opening LP pressure of 360 mmHg, and repeat opening pressure was 190 mmHg on the same day. MRI and MRV obtained is negative for any obvious cause or cavernous sinus thrombosis. Patient did say that she had a little improvement in her headache after the lumbar tap. - Was seen by ophthalmology with no evidence of papilledema. - Lumbar tap done by IR showed dry tap yesterday. Plan for a blood patch for preventing CSF leak in 24-48 hours if headache does not improve -Patient has a history of migraine she has been taking propranolol for migraine prophylaxis. Will hold it in the hospital. She was recently admitted at [place] for a similar episode of severe headache. She was discharged on the prednisone and fioricet with a diagnosis of migraine (records available in file) . We will continue with the taper of prednisone to avoid abrupt discontinuation. We'll continue to monitor her closely Elevated blood pressure Blood pressure stable over the last 24 hours Elevated blood sugars Per history obtained by the primary staff, patient reports of polyuria Her HbA1c is 5.7 from 11/29/16. Elevated liver enzymes Repeat LFTs tomorrow and continue to monitor. DVT prophylaxis Alps Patient is full code Problem List: 1. Intractable headache Pain Ratin Pain Location: head Pain Goal: Pain 4 or less Pain Plan: IV Dilaudid Tomorrow's Labs & Rationales: Matias CURIEL MD,LOUISE 12/01/16 1043: Attending MD Review Statement Attending Statement Attending MD Statement: examined this patient, discuss w/resident/PA/DRUM SANDER SETTER, agreed w/resident/PA/DRUM SANDER SETTER, discussed with family, reviewed EMR data (avail), discussed with nursing, discussed with case mgmt, reviewed images Attending Assessment/Plan: Pt continues to be in severe pain. She says the Depacon on and Solu-Medrol didn 't help any. She says the only thing that helps is the Dilaudid and that too for a very short period of time. She is barely able to open her eyes, walk around or eat. I explained the differential diagnosis of status migrainosus versus a CSF leak. I also explained that this is likely not idiopathic intracranial hypertension as previously thought. We'll continue the IV hydration, continue to lay her flat as long as that makes her feel better, give her pain medications and reevaluate as per neurology and questionable blood patch if needed in the next 24 hours.
[2016-12-01 14:13] VITALS: BP 134/74
--- NOTE | 2016-12-01 16:20 | Event Note ---
Event Note Event Note: Verbal Consent obtained form the patient to discuss her medical condition. Spoke to patients sister, who works as ICU nurse in [place] and updated her condition.
--- NOTE | 2016-12-01 20:30 | PN- Neurology ---
Subjective Subjective: Headache better today, now on Dilaudid. [place] that she was 30% better in AM after having the headache cocktail the night before. Review of Systems: no change. Objective Vital Signs and I&Os Vital Signs Date Time Temp Pulse Resp B/P Pulse O2 O2 Flow FiO2 Ox Delivery Rate 12/01 1413 98.2 83 20 134/74 95 Room Air 12/01 0734 97.6 78 18 132/70 97 Room Air 11/30 2049 98.3 84 18 128/74 96 Room Air Intake & Output 12/01 1600 12/01 0800 12/01 0000 11/30 1600 11/30 0800 11/30 0000 Intake Total 1500 800 400 500 480 340 Output Total 1450 350 500 600 600 Balance 50 800 50 0 -120 -260 Intake, IV 800 400 100 Intake, Oral 1500 500 480 240 Output, Urine 1450 350 500 600 600 Patient 238 lb Weight Physical Exam: Alert and oriented, chatting to friends, in no distress. Face symmetric, EOMI, AGUILAR. Strength intact. No change in headache when sitting up. Current Medications: Current Medications Sig/Mila Start time Last Medication Dose Route Stop Time Status Admin Acetaminophen 1,000 MG Q6P PRN 11/28 2130 DC 12/01 IV 1211 Bisacodyl 10 MG ONCE ONE 12/01 1615 DC IA 12/01 1616 Calcium Carbonate 500 MG DAILY 11/30 1345 AC 12/01 PO 1003 Diphenhydramine HCl 50 MG ONCE ONE 11/30 2100 DC 11/30 IV PUSH 11/30 2101 2217 Diphenhydramine HCl 25 MG Q6P PRN 11/28 2130 AC 11/30 IV 0828 Docusate Sodium 100 MG DAILY NEEDED PRN 11/30 0645 AC PO Hydromorphone HCl 2 MG Q4P PRN 12/01 1600 AC 12/01 PO 1700 Hydromorphone HCl 0.4 MG Q4P PRN 11/28 2145 AC 12/01 IV 1804 Levothyroxine Sodium 0.075 MG 0700 11/30 0830 AC 12/01 PO 0554 Omeprazole 20 MG DAILY AC 11/30 0700 AC 12/01 PO 0554 Ondansetron HCl 4 MG .STK-MED ONE 12/01 0858 DC IM 12/01 0859 Ondansetron HCl 4 MG Q6P PRN 11/28 2130 AC 12/01 IV 0902 Patient Medication 1 ED .STK-MED ONE 12/01 1356 DC Teaching ED 12/01 1357 Polyethylene Glycol 17 GM DAILY 11/30 1000 AC 12/01 PO 1002 Prednisone 40 MG DAILY 11/30 1000 DC 11/30 PO 12/01 1001 1125 Senna 187 MG AT BEDTIME 11/30 2200 AC 11/30 PO 2218 Senna/Docusate Sodium 2 TAB DAILY 11/30 0830 AC 12/01 PO 1002 Sodium Chloride 1,000 ML Q10H 11/30 1615 DC 12/01 IV 1205 Temazepam 15 MG AT BEDTIME NEED.. 11/30 1715 AC PO Results Last 24 Hours of Lab Results: None. Recent Imaging Studies: None. Assessment/Plan Assessment: 51 year old woman with a severe bout of headache most likely due to status migrainosus. Plan: 1. Recommend starting to shift from Dilaudid to Fioricet. 2. Start prevention with Topamax 25mg at night and the next day increase to 50mg. 3. Out of bed and PT.
[2016-12-01 22:33] VITALS: BP 128/72
[2016-12-02 07:12] VITALS: BP 110/50
--- NOTE | 2016-12-02 07:54 | PN- Housestaff ---
JOANN CASTELLANOS,MERYL 12/02/16 0754: Subjective Follow-up For: Headache Subjective: She still complains of similar headache with a 10 x 10 in intensity density with minimal relief. On IV Dilaudid every 4 hours. On by mouth Dilaudid every 4 hours. Overnight no events reported. Review of Systems Constitutional: Reports: see HPI. Objective Last 24 Hrs of Vital Signs/I&O Vital Signs Date Time Temp Pulse Resp B/P Pulse O2 O2 Flow FiO2 Ox Delivery Rate 12/02 1421 98.1 79 20 134/92 98 Room Air 12/02 0712 98.1 78 18 110/50 96 Room Air 12/01 2233 97.8 69 20 128/72 96 Room Air Intake & Output 12/02 1600 12/02 0800 12/02 0000 Intake Total 360 825 Output Total Balance 360 825 Intake, IV 225 Intake, Oral 360 600 Physical Exam General Appearance: Alert, Oriented X3, Cooperative, No Acute Distress Skin: No Rashes Cardiovascular: Regular Rate, Normal S1, Normal S2, No Murmurs Lungs: Clear to Auscultation, Normal Air Movement Abdomen: Normal Bowel Sounds, Soft, No Tenderness Extremities: No Clubbing, No Cyanosis, No Edema Current Medications: Current Medications Sig/Mila Start time Last Medication Dose Route Stop Time Status Admin Acetaminophen 1,000 MG Q6P PRN 11/28 2130 DC 12/01 IV 1211 Acetaminophen/ 1 TAB Q4P PRN 12/02 0945 AC 12/02 Butalbital/Caffeine PO 1405 Bisacodyl 10 MG ONCE ONE 12/01 1615 DC OH 12/01 1616 Calcium Carbonate 500 MG DAILY 11/30 1345 AC 12/02 PO 1026 Diphenhydramine HCl 25 MG Q6P PRN 11/28 2130 AC 11/30 IV 0828 Docusate Sodium 100 MG DAILY NEEDED PRN 11/30 0645 AC PO Hydromorphone HCl 2 MG Q6P PRN 12/02 0945 DC PO Hydromorphone HCl 2 MG Q4P PRN 12/01 1600 DC 12/02 PO 0739 Hydromorphone HCl 0.4 MG Q4P PRN 11/28 2145 DC 12/02 IV 0518 Levothyroxine Sodium 0.075 MG 0700 11/30 0830 AC 12/02 PO 0518 Omeprazole 20 MG DAILY AC 11/30 0700 AC 12/02 PO 0517 Ondansetron HCl 4 MG Q6P PRN 11/28 2130 AC 12/01 IV 0902 Polyethylene Glycol 17 GM DAILY 11/30 1000 AC 12/02 PO 1026 Senna 187 MG AT BEDTIME 11/30 2200 AC 12/01 PO 2131 Senna/Docusate Sodium 2 TAB DAILY 11/30 0830 AC 12/01 PO 1002 Sodium Chloride 1,000 ML Q10H 11/30 1615 DC 12/01 IV 1205 Temazepam 15 MG AT BEDTIME NEED.. 11/30 1715 AC PO Topiramate 50 MG AT BEDTIME 12/02 220 AC PO Topiramate 50 MG DAILY 12/02 1000 CAN PO Topiramate 25 MG ONCE ONE 12/02 0045 DC 12/02 PO 12/02 0046 0252 Last 24 Hrs of Lab/Louis Results Last 24 Hrs of Labs/Mics: Laboratory Tests 12/02/16 0636: Anion Gap 9, Estimated GFR 47 L, BUN/Creatinine Ratio 21.7 Assessment/Plan Assessment: Patient is a 51-year-old female with past medical history significant for migraines and fungal nail infection, she presented with an 8 day history of severe pressure-like headache that was sudden in onset diffusely distributed over her head and associated with photophobia. She denies any visual changes, diplopia, neurological weakness, tingling numbness, trauma, LOC, fever, runny nose, ear pain, neck pain, rash, joint pains or swelling. She complains of associated nausea and vomiting, occurring intermittently throughout the week. She went to [facility] twice so far for this, last time on which she had a CT scan of her head and was told that her brain was "swollen" and was started on prednisone, Fioricet and tramadol without relief. Headache persisted, so she came to ER again. Denies any history of OCP use, endorses weight gain of 65 pounds in last 1 year, did not smoke cigarette, smoked THC in the past, quit 2 years back. Denies IV drug use. Her migraine episodes are usually 3 times a month, taking propranolol for preventive medication. Was started on terbinafine for ? "Nail thickening". Endorses polyuria since last 3 months. Imaging done in the hospital MR BRAIN WITHOUT CONTRAST 11/29/16 MR VENOGRAPHY BRAIN WITHOUT CONTRAST 11/29/16 1. Minimal nonspecific white matter changes. Otherwise normal brain MRI. 2. Normal brain MRV. CT head without IV contrast 11/28/16 No acute intracranial pathology. Specifically I do not appreciate any evidence for intracranial hemorrhage on these images. Problem list Acute on chronic headache possibly pseudotumor cerebri Elevated blood pressure Elevated liver enzymes Elevated blood sugar Assessment and plan Acute on chronic headache, possibly status migrainosus versus CSF leak - Currently on Topamax the dose increased to 50 mg - we'll transition to Fioricet and assess her headache. -If patient does not respond we will consider blood patch for possible CSF leak IR tomorrow - We will discontinue by mouth and IV Dilaudid - Patient independent and ambulating to use the bathroom Elevated blood pressure Blood pressure stable over the last 24 hours Elevated blood sugars Her HbA1c is 5.7 from 11/29/16. Hyperlipidemia -On statins which we will continue Hypothyroidism -We'll continue home dose of levothyroxine DVT prophylaxis Alps Patient is full code Problem List: 1. Intractable headache Pain Ratin Pain Location: Head Pain Goal: Remain pain free Pain Plan: As mentioned in the medications Tomorrow's Labs & Rationales: Not needed LOUISE CURIEL MD 12/02/16 0931: Attending MD Review Statement Attending Statement Attending MD Statement: examined this patient, discuss w/resident/PA/HYDRAULIC DESIGN ENGINEER, agreed w/resident/PA/HYDRAULIC DESIGN ENGINEER, reviewed EMR data (avail), discussed with nursing, discussed with case mgmt Attending Assessment/Plan: Overall patient appears mildly improved. She still has a pretty severe headache and is still finding it hard to carry out activities of daily living. She took 2 doses of by mouth Dilaudid since midnight today and 2 doses of IV Dilaudid. Appreciate neurology's recommendations of Fioricet and Topamax. Initially the thought was that this was idiopathic intracranial hypertension however later thought that was that this was a CSF leak and now the working diagnosis is status migrainosus. We'll have to watch her closely to make sure she improves, encourage by mouth intake and follow-up.
--- NOTE | 2016-12-02 09:46 | NUR ---
PHYSICAL THERAPY: REVIEWED PT CHART PRIOR TO EVAL, AND UNDER ACTIVITY PT CURRENT STATUS HAS BEEN INDEPENDENT AMBULATION TO BATHROOM FOR MULTIPLE DAYS IN A ROW. AT THIS TIME PT EVAL IS NOT APPROPRIATE DUE TO INDEPENDENT STATUS.
--- NOTE | 2016-12-02 14:05 | Discharge Summary ---
Visit Information Visit Dates Admission Date: 11/28/16 Discharge Date: 12/03/16 Hospital Course Course Attending Physician: EFRA ALEXIS MD Primary Care Physician: PATIENT HAS NO PRIMARY CARE DR Consulting Request: Consulting Specialty: Neurology Hospital Course: 51 year-old female with past medical history of significant migraines presents to the ED with chief complaints of headache over the last 8-10 days. Vitals and admission: Blood pressure 184/99 which improved to 160/82, respiration 18, pulse rate 98, temperature 96.9, oxygen saturation 99% on room air. Labs and admission: W BC 13.1, hemoglobin 14.3, hematocrit 42.8, platelet 270, sodium 138, potassium 3.8, chloride 103, bicarbonate 25, BUN 21, creatinine 0.9, ESR 1 Imaging on admission 1. CAT scan of the head: No acute intracranial pathology Hospital course 1. Headache: Patient was admitted to general medical floor. She was started on pain medications with minimal relief. LP was done in the ED which showed ? intracranial pressure. Ophthalmology was consulted which ruled out evidence of papilledema. There was an initial concern for pseudotumor cerebri. LP was attempted in the floor which was a unsuccessful. Repeat LP was attempted by interventional radiology under fluoroscopic guidance which was deemed to be dry tap. There was a concern for CSF leak but blood patch was not attempted as her headache was better with PO medications. She was also started on Topamax and Fioricet for status migrainosus as per neurology recommendation. Her headache did respond well these medications. She will need continued follow-up with neurology for ongoing migraine headaches. We will continue Topamax for migrane ppx 2. Hypertension: Blood pressure initially on admission was high. Repeat blood pressure in the flows remained within acceptable range. She should need to follow-up with the primary care physician. 3. Polyuria: Urine analysis on admission was within normal limits. Hemoglobin A1c was checked which was 5.7. No further intervention was done. Does not have stress incontinence. Full code statu Allergies: Coded Allergies: No Known Allergies (11/28/16) Significant Procedures: Lumbar puncture Disposition Summary Disposition Principal Diagnosis: 1. Status migrainosus Additional Diagnosis: 1. HTN Discharge Disposition: home or self care Discharge Instructions General Discharge Information Code Status: Full Code Patient's Diet: Regular diet Patient's Activity: As tolerated Follow-Up Instructions/Appts: 1. Follow up with PCP in a week up on discharge. Patient does not have a PCP. We will refer her to [facility] with Dr. David 2. Follow up with neurology for further managment of migranes Medications at Discharge Discharge Medications: Stop taking the following medications: Prednisone (Prednisone) 20 MG TABLET ORAL DAILY Qty = 12 Propranolol HCl (Propranolol HCl) 20 MG TABLET ORAL TWICE DAILY Qty = 60 Terbinafine HCl (Terbinafine HCl) 250 MG TABLET ORAL DAILY Qty = 28 Continue taking these medications: Tramadol HCl (Tramadol HCl) 50 MG TABLET 1 Tablet ORAL EVERY 4-6 HOURS NEEDED as needed for PAIN Qty = 20 Comments: NOT GIVEN IN HOSPITAL Butalbital/Aspirin/Caffeine (Hbygllxqps-Skl-Yswqmbtr Cap) 50 MG-325 MG-40 MG CAPSULE 1-2 Capsule ORAL EVERY 4 HOURS NEEDED as needed for HEADCHE Qty = 20 Instructions: MAX 6 CAPSULES PER DAY Comments: Last Taken:12/03/16 Time:10:25 AM Levothyroxine Sodium (Levoxyl) 75 MCG TABLET 1 Tablet ORAL DAILY Qty = 30 Comments: Last Taken:12/03/16 Time:5:30 AM Start taking the following new medications: Topiramate (Topamax) 50 MG TABLET 1 Tablet ORAL AT BEDTIME Qty = 30 No Refills Comments: Last Taken:12/02/16 Time:8:45 PM Copies To: PRADEEP DAVID MD
[2016-12-02 14:21] VITALS: BP 134/92
[2016-12-02] MEDS ORDERED: TOPAMAX200 M1 PO (14:24)
--- NOTE | 2016-12-02 14:25 | Patient Discharge Instructions ---
Discharge Instructions General Discharge Information You were seen/treated for: Migraine headaches Special Instructions: 1. Follow-up with her primary care physician in a week upon discharge 2. Follow-up with neurology. Please call the office for a follow-up appointment Diet Recommended Diet: Regular Activity Full Activity/No Limits: Yes Acute Coronary Syndrome Inclusion Criteria At DC or during hospital stay patient has or had the following: ACS DIAGNOSIS No Discharge Core Measures Meds if any: Prescribed or Continued at Discharge Meds if any: NOT Prescribed or Continued at Discharge Congestive Heart Failure Inclusion Criteria At DC or during hospital stay patient has or had the following: CHF DIAGNOSIS No Discharge Core Measures Meds if any: Prescribed or Continued at Discharge Meds if any: NOT Prescribed or Continued at Discharge Cerebrovascular accident Inclusion Criteria At DC or during hospital stay patient has or had the following: CVA/TIA Diagnosis No Discharge Core Measures Meds if any: Prescribed or Continued at Discharge Meds if any: NOT Prescribed or Continued at Discharge Venous thromboembolism Inclusion Criteria VTE Diagnosis No VTE Type NONE VTE Confirmed by (Test) NONE Discharge Core Measures - Per Current guidelines, there needs to be overlap - treatment for the first 5 days of Warfarin therapy. - If discharged on Warfarin prior to 5 days of - overlap therapy, the patient will need to be - assessed for post discharge needs including - *Post discharge parental anticoagulation - *Warfarin and/or parental anticoagulation education - *Follow up date to check INR post discharge At least 5 days overlap therapy as Inpatient No Meds if any: Prescribed or Continued at Discharge Note: Overlap Therapy is Warfarin and Anticoagulant Meds if any: NOT Prescribed or Continued at Discharge
[2016-12-02 23:01] VITALS: BP 136/82
[2016-12-03 07:47] VITALS: BP 119/65
--- NOTE | 2016-12-03 09:14 | PN- Housestaff ---
JOANN CASTELLANOS,MERYL 12/03/16 0914: Subjective Follow-up For: Headaches Subjective: Patient appears more comfortable today. Reports pain has reduced from 10-4 in intensity after Fioricet. Did not receive Dilaudid overnight. Denies nausea, vomiting, Review of Systems Constitutional: Reports: see HPI. Objective Last 24 Hrs of Vital Signs/I&O Vital Signs Date Time Temp Pulse Resp B/P Pulse O2 O2 Flow FiO2 Ox Delivery Rate 12/03 0747 98.7 85 18 119/65 97 Room Air 12/02 2301 98.3 90 20 136/82 97 Room Air Intake & Output 12/03 1600 12/03 0800 12/03 0000 Intake Total 1080 800 Output Total Balance 1080 800 Intake, IV 600 300 Intake, Oral 480 500 Physical Exam General Appearance: Alert, Oriented X3, Cooperative, No Acute Distress Skin: No Rashes Cardiovascular: Regular Rate, Normal S1, Normal S2, No Murmurs Lungs: Clear to Auscultation Abdomen: Normal Bowel Sounds, Soft, No Tenderness Neurological: Normal Speech, Normal Tone Current Medications: Current Medications Sig/Mila Start time Last Medication Dose Route Stop Time Status Admin Acetaminophen/ 1 TAB Q4P PRN 12/02 0945 DCD 12/03 Butalbital/Caffeine PO 1024 Calcium Carbonate 500 MG DAILY 11/30 1345 DCD 12/03 PO 1025 Diphenhydramine HCl 25 MG Q6P PRN 11/28 2130 DC 11/30 IV 0828 Docusate Sodium 100 MG DAILY NEEDED PRN 11/30 0645 DCD PO Levothyroxine Sodium 0.075 MG 0700 11/30 0830 DCD 12/03 PO 0523 Omeprazole 20 MG DAILY AC 11/30 0700 DCD 12/03 PO 0524 Ondansetron HCl 4 MG Q6P PRN 11/28 2130 DCD 12/01 IV 0902 Patient Medication 1 ED .STK-MED ONE 12/03 1338 DC Teaching ED 12/03 1339 Polyethylene Glycol 17 GM DAILY 11/30 1000 DCD 12/03 PO 1025 Senna 187 MG AT BEDTIME 11/30 2200 DCD 12/02 PO 2046 Senna/Docusate Sodium 2 TAB DAILY 11/30 0830 DCD 12/03 PO 1023 Sodium Chloride 1,000 ML Q10H 12/02 1545 DC 12/02 IV 12/03 0144 1658 Temazepam 15 MG AT BEDTIME NEED.. 11/30 1715 DC PO Topiramate 50 MG AT BEDTIME 12/02 2199 DCD 12/02 PO 2044 Assessment/Plan Assessment: Patient is a 51-year-old female with past medical history significant for migraines and fungal nail infection, she presented with an 8 day history of severe pressure-like headache that was sudden in onset diffusely distributed over her head and associated with photophobia. She denies any visual changes, diplopia, neurological weakness, tingling numbness, trauma, LOC, fever, runny nose, ear pain, neck pain, rash, joint pains or swelling. She complains of associated nausea and vomiting, occurring intermittently throughout the week. She went to [facility] twice so far for this, last time on which she had a CT scan of her head and was told that her brain was "swollen" and was started on prednisone, Fioricet and tramadol without relief. Headache persisted, so she came to ER again. Denies any history of OCP use, endorses weight gain of 65 pounds in last 1 year, did not smoke cigarette, smoked THC in the past, quit 2 years back. Denies IV drug use. Her migraine episodes are usually 3 times a month, taking propranolol for preventive medication. Was started on terbinafine for ? "Nail thickening". Endorses polyuria since last 3 months. Imaging done in the hospital MR BRAIN WITHOUT CONTRAST 11/29/16 MR VENOGRAPHY BRAIN WITHOUT CONTRAST 11/29/16 1. Minimal nonspecific white matter changes. Otherwise normal brain MRI. 2. Normal brain MRV. CT head without IV contrast 11/28/16 No acute intracranial pathology. Specifically I do not appreciate any evidence for intracranial hemorrhage on these images. Problem list Acute on chronic headache possibly pseudotumor cerebri Elevated blood pressure Elevated liver enzymes Elevated blood sugar Assessment and plan Acute on chronic headache, possibly status migrainosus -We'll continue Topamax at 50 mg as migraine prophylaxis. We will stop her home dose of propranolol as that is indicated for prophylaxis to. -Discharge with Fiurocet - Referral given to follow-up with neurology for further management of migraine and shooting back pain - Patient works as a school bus driver. She does not have any history of seizures. There is no restriction for her to drive. Return to work note given to resume work when patient able to. - Recommended to take Topamax at bedtime. Side effects of medications discussed. - She will follow-up with primary care physician upon discharge. She was also given referral to resident clinic with Dr. Connell if she is not able to get in touch with her PCP. Elevated blood pressure Blood pressure stable over the last 24 hours Elevated blood sugars Her HbA1c is 5.7 from 11/29/16. Hyperlipidemia -On statins which we will continue Hypothyroidism -We'll continue home dose of levothyroxine DVT prophylaxis Alps Patient is full code Problem List: 1. Intractable headache Pain Ratin Pain Location: Head Pain Goal: Pain 4 or less Pain Plan: As mentioned Tomorrow's Labs & Rationales: Patient discharged today LOUISE CURIEL MD 12/03/16 1406: Attending MD Review Statement Attending Statement Attending MD Statement: examined this patient, discuss w/resident/PA/[employer], agreed w/resident/PA/[employer], reviewed EMR data (avail), discussed with nursing, discussed with case mgmt Attending Assessment/Plan: Patient is now on all by mouth meds. Her headache is slightly better. She is on Topamax at bedtime with Fioricet when necessary. She understands that she needs to follow-up with neurology as an outpatient. She also understands that we switched her from propranolol to Topamax for migraine prophylaxis and the plan is close outpatient follow-up.
[2016-12-03] MEDS ORDERED: TOPAMAX50 M1 PO (10:15)
== END 2016-12-03 11:45 | DRG 54 ==
LOC: ENRESERVTM → ENRESERVDT → ERH 10:28 → 2NB 19:40 → ERHI 19:40 → ENPENDDIS 19:40 → 2NB 19:40
PROVIDERS: Internal Medicine; Internal Medicine Hematology & Oncology; Physician Assistant Surgical; ADMIT Internal Medicine
PROC: 009U3ZX Drainage of Spinal Canal, Percutaneous Approach, Diagnostic (ICD-10-PCS; principal; 2016-11-28)
PROC: 009U3ZZ Drainage of Spinal Canal, Percutaneous Approach (ICD-10-PCS; 2016-11-30)
DX: G43.911 Migraine, unspecified, intractable, with status migrainosus (principal); N17.9 Acute kidney failure, unspecified; K21.9 Gastro-esophageal reflux disease without esophagitis; I16.0 Hypertensive urgency; G97.0 Cerebrospinal fluid leak from spinal puncture; Y84.9 Medical procedure, unspecified as the cause of abnormal reaction of the patient, or of later complication, without mention of misadventure at the time of the procedure; E78.5 Hyperlipidemia, unspecified; E03.9 Hypothyroidism, unspecified; E66.9 Obesity, unspecified; Z68.39 Body mass index [BMI] 39.0-39.9, adult
CPT/HCPCS: 2NBSP; 70551; 70555; 87070; 87075; 87205; 36415; 77002; 81001; 81025; 82436; 84481; 87086; 88305; 93005; 93010; 96361; 96374; 96375; 96376; 99291; J0131; J0360; J1120; J1200; J1650; J1885; J2405; J2550; J2930; J3490